=== PATIENT | female | born 1960 | race Caucasian/White ===

== ENCOUNTER 2025-08-27 15:50 | Observation (INO) ==
[2025-08-27] MEDS: ONDANSETRON INJ 2 MG/ML 2 ML VIAL IV STA (16:33)
[2025-08-27] MEDS: MoRPHine SULFATE 4 MG/ML 1 ML CARP\\VIAL IV PRN (16:38)
[2025-08-27 17:04] LABS: Hematocrit (blood only) 39.8 % (37.0-47.0); Hemoglobin 13.1 g/dL (12.0-16.0); Immature Granulocytes # (auto) 0.06 K/uL (0.01-0.20); Immature Granulocytes % (auto) 0.4 %; Mean Corpuscular Hemoglobin 29.2 pg (25.0-34.0); Mean Corpuscular Volume 88.8 fL (80.0-100.0); Platelet Count 329 K/uL (130-400); RDW Standard Deviation 40.3 fL (36.4-46.3); Red Blood Count 4.48 M/uL (4.20-5.40); White Blood Count 15.55 K/ul (4.8-10.8)
[2025-08-27] MEDS: LIDOCAINE 1% LOCAL 20 ML VIAL INJ ONE (17:07)
--- NOTE | 2025-08-27 17:10 | Emergency Department Note ---
History of Present Illness General Chief complaint: Ankle Pain Stated complaint: TWISTED RT ANKLE RAKING LEAVES, ~2:15 PM Time Seen by Provider: 08/27/25 16:17 History of Present Illness Maximum Pain Intensity: 7 This is a 65-year-old female presenting to the emergency department for evaluation of right ankle injury. The patient was raking leaves around 2:15 PM, slipped on the curb, and fell. She injured the right ankle and was not able to ambulate. Patient had to crawl back into the home and reach out to her . The patient does not have a previous injury to this ankle or foot, but did have a meniscus repair on the right knee. Patient rates her discomfort a 7/10. She does not have any blood or bleeding around the ankle. No head, neck, chest, or arm pain. Last meal was around 11:30 AM today. She has not had anything for pain control. Home Medications Medication Instructions Recorded Confirmed Type aspirin 81 mg tablet,delayed 81 mg PO DAILY 12/12/22 08/27/25 History release (Adult Aspirin Regimen) celecoxib 100 mg capsule (Celebrex) See Rx Instructions .Route 02/25/25 08/27/25 Rx .COMPLEX #30 caps triamterene 37.5 1 tab PO DAILY #90 tabs 04/22/25 08/27/25 Rx mg-hydrochlorothiazide 25 mg tablet metformin 500 mg tablet,extended 500 mg PO DAILY #30 tabs 07/01/25 08/27/25 Rx release 24 hr Allergies Allergy/AdvReac Type Severity Reaction Status Date / Time No Known Allergies Allergy Verified 08/27/25 16:33 Past Med/Surg History Problem List (Updated 08/27/25 @ 21:05 by Johnnie العلي PA-C) Displaced trimalleolar fracture of right ankle (Acute) Prediabetes (Chronic) Osteoarthritis of right knee (Chronic) Hyperlipidemia (Chronic) Hypertension (Chronic) Medical History Abnormal computed tomography angiography of head CTA [facility] 2021 = fusiform dilation of distal cervical segment right ICA and mild luminal irregularities V3 segments of both vertebral arteries - [facility] neurosurgery recommends low dose daily aspirin History of melanoma (2022) [place] 0.2 mm History of skull fracture (2021) History of basal cell carcinoma x2 (neck, left shoulder) Surgical History History of arthroscopy H/O oral surgery H/O knee surgery Family History Aunt Breast cancer Grandfather (Paternal) Colorectal cancer Grandmother (Paternal) Colorectal cancer Denies family history of Ovarian cancer Prostate cancer Myocardial infarction Social History Smoking Status: Never smoker Second Hand Exposure: No; Do You Dip or Chew Tobacco: No; Hx Alcohol Use: No Hx Substance Use: No Preferred Language: Tajik Visual Impairment: No Limitations Hearing Ability: Normal marital status: Current Living Situation: Spouse current occupational status: unemployed Feels Safe at Home: Yes Childhood Exposure to Second-Hand Smoke: Yes Diet: regular caffeine: Yes Dental Care, Regularly: No Physical Activity Frequency: Does not Exercise Seatbelt Use: always Sunscreen Use: Yes Assistive Devices: Glasses Review of Systems A total of 10 systems reviewed and were otherwise negative Physical Exam Vital Signs Vital Signs - 24 hr 08/27/25 16:04 08/27/25 19:51 08/27/25 20:48 Temperature 36.4 C L Temperature Source Temporal Artery Scan Pulse Rate 77 76 Pulse Rate [Finger] 72 Pulse Rhythm [Finger] Regular Respiratory Rate 19 18 18 Respiratory Effort / Characteristics Non-Labored Spontaneous Non-Labored Spontaneous Respiratory Depth Normal Normal Respiratory Pattern Regular Regular Blood Pressure 166/80 H Blood Pressure [Right Arm] Blood Pressure Mean 108 Blood Pressure Mean [Right Arm] Pulse Oximetry 97 98 97 Oxygen Delivery Method Room Air Room Air Room Air Sepsis Recent Fever Within 48 Hours No Sepsis New/Unexplained Change in Mental Status N/A Sepsis Action Taken by Nursing No Action Required 08/27/25 20:51 Temperature Temperature Source Pulse Rate Pulse Rate [Finger] 72 Pulse Rhythm [Finger] Respiratory Rate 17 Respiratory Effort / Characteristics Non-Labored Spontaneous Respiratory Depth Normal Respiratory Pattern Regular Blood Pressure Blood Pressure [Right Arm] 119/58 L Blood Pressure Mean Blood Pressure Mean [Right Arm] 78 Pulse Oximetry 98 Oxygen Delivery Method Room Air Sepsis Recent Fever Within 48 Hours Sepsis New/Unexplained Change in Mental Status Sepsis Action Taken by Nursing VITALS: Vitals are noted on the nurse's note and reviewed by myself. Vital signs stable. GENERAL: Well-developed, well-nourished, white female, who is pleasant and moderately uncomfortable. HEAD: Normocephalic atraumatic. NECK: Supple without nuchal rigidity. No lymphadenopathy. No thyromegaly. Cervical spine is nontender. HEART: Regular rate and rhythm without murmurs gallops or rubs. LUNGS: Clear to auscultation bilaterally without wheezes, rales or rhonchi. No retractions or accessory muscle use. ABDOMEN: Positive normal bowel sounds x 4. Soft, nontender, without masses or organomegaly. No guarding or rebound tenderness. MUSCULOSKELETAL: Edema noted with concern for deformity to the right ankle. No blood or bleeding. Neurovascular status appears intact. She is able to move the toes. No tenderness to the mid calf, proximal tib-fib, or knee. No other significant extremity injury identified. NEURO: Patient was alert and oriented to person place and time. CN II through XII grossly intact. No focal neurological deficits. GCS 15. Course Administered Medications Acetaminophen (Acetaminophen 500 Mg Tab) 1,000 mg PO Q8H LUIS Stop: 09/26/25 13:59 Last Admin: 08/27/25 19:27 Dose: Not Given Documented By: KLS Discontinued Medications Fentanyl Citrate (Fentanyl Citrate Pf 100 Mcg/2 Ml Vial) 100 mcg IV NOW STA Stop: 08/27/25 17:02 Last Admin: 08/27/25 17:06 Dose: 100 mcg Documented By: JESUS Lidocaine HCl (Lidocaine 1% Local 20 Ml Vial) 20 ml INJ NOW ONE Stop: 08/27/25 17:02 Last Admin: 08/27/25 17:07 Dose: 10 ml Documented By: JESUS Morphine Sulfate (Morphine Sulfate 4 Mg/Ml 1 Ml Carp\Vial) 4 mg IV Q30M PRN PRN Reason: Pain Stop: 09/10/25 16:23 Last Admin: 08/27/25 16:38 Dose: 4 mg Documented By: BS Ondansetron HCl (Ondansetron Inj 2 Mg/Ml 2 Ml Vial) 4 mg IV NOW STA Stop: 08/27/25 16:25 Last Admin: 08/27/25 16:33 Dose: 4 mg Documented By: BS Medical Decision Making Differential Diagnosis Differential diagnosis includes, but is not limited to: Sprain, strain, fracture, dislocation, subluxation, contusion, and others Laboratory Data 08/27/25 16:41 08/27/25 16:41 Lab Results 08/27/25 Range/Units 16:41 WBC 15.55 H (4.8-10.8) K/ul RBC 4.48 (4.20-5.40) M/uL Hgb 13.1 (12.0-16.0) g/dL Hct 39.8 (37.0-47.0) % MCV 88.8 (80.0-100.0) fL MCH 29.2 (25.0-34.0) pg MCHC 32.9 (32.0-36.0) g/dL RDW Std Deviation 40.3 (36.4-46.3) fL RDW Coeff of Sam 12.5 (11.5-14.5) % Plt Count 329 (130-400) K/uL MPV 9.9 (9.4-12.4) fL Immature Gran % (Auto) 0.4 % Neut % (Auto) 84.3 % Lymph % (Auto) 9.8 % [place] % (Auto) 4.4 % Eos % (Auto) 0.6 % Baso % (Auto) 0.5 % Neut # (Auto) 13.12 H (1.40-6.50) K/uL Lymph # (Auto) 1.52 (1.20-3.40) K/uL [place] # (Auto) 0.68 H (0.11-0.59) K/uL Eos # (Auto) 0.10 (0.00-0.50) K/uL Baso # (Auto) 0.07 (0.00-0.20) K/uL Immature Gran # (Auto) 0.06 (0.01-0.20) K/uL Sodium 137 (136-145) mmol/L Potassium 4.0 (3.5-5.1) mmol/L Chloride 100 (98-107) mmol/L Carbon Dioxide 27 (21-32) mmol/L Anion Gap 10 (3-11) BUN 20 (6-23) mg/dl Creatinine 1.27 H (0.6-1.2) mg/dl Est Cr Clr Drug Dosing Not Reportable eGFR 47.52 BUN/Creatinine Ratio 15.7 (10-20) Glucose 185 H (70-99(Fasting)) mg/dl Calcium 9.5 (8.6-10.3) mg/dl Total Bilirubin 0.4 (0.2-1.0) mg/dl AST 18 (13-39) U/L ALT 12 (7-52) U/L Alkaline Phosphatase 85 (34-104) U/L Total Protein 8.0 (6.0-8.3) gm/dl Albumin 4.7 (3.4-5.0) gm/dl Globulin 3.3 (2.5-4.0) gm/dl Albumin/Globulin Ratio 1.4 (0.9-2) Imaging Data Radiologist's Impression: Ankle X-Ray 08/27/25 16:10 Clinical History: Injury 3 views of the right ankle are submitted for review. Findings: There is dislocation of the ankle joint. There is an acute comminuted fracture of the distal fibular shaft width displacement and angulation of fracture fragments. There is a fracture of the posterior malleolus with displacement of fracture fragments. There is an apparent displaced fracture of the medial malleolus also. There is a dorsal calcaneal spur. No significant arthritic changes are noted. No other osseous abnormality is identified. There are no radiopaque foreign bodies. Impression: 1. Acute fractures of the medial and posterior malleoli and of the distal fibular shaft 2. Dislocation of the ankle joint ACT 112: Positive. There are findings on this exam that require communication between the performing entity and the patient following Patient Test Result Information Act ([place] ACT 112) guidelines. Electronically signed by Dipak Doty 08-27-2025 5:58 PM Ankle X-Ray 08/27/25 17:43 INDICATION: Fracture COMPARISON: X-ray from earlier TECHNIQUE: Contiguous axial CT images were obtained through the right ankle. Sagittal and coronal reconstructions were obtained. 3-D surface rendering and separate workstation. Dose reduction according to patient size and/or automated exposure control techniques have been utilized for this exam. FINDINGS: CT AXIAL IMAGES: Comminuted fracture of the distal fibular shaft. Mild displacement of the fracture fragments. Fracture through the lateral aspect of the distal tibia. Mild displacement of the fracture fragments. Tiny chip fracture through the medial malleolus. Adjacentwell-corticated calcifications. Fracture through the posterior aspect of the distal tibia. Minimal displacement of the fracture fragments. Better anatomic alignment at the ankle mortise. Soft tissue swelling. Cast in place. 3-D SURFACE RENDERING: Confirms the above findings. IMPRESSION: Comminuted fracture of the distal fibular shaft. Posterior malleolar fracture of the tibia. Additional fracture through the lateral aspect of the distal tibia. Tiny chip fracture of the medial malleolus. Electronically signed by Francesca Pérez 08-27-2025 6:[address] 08/27/25 17:57 INDICATION: Post reduction COMPARISON: Earlier today FINDINGS: Redemonstration of fractures of the distal tibia and fibula. Better anatomic alignment of the ankle mortise. Cast in place. Electronically signed by Francesca Pérez 08-27-2025 6:58 PM Chest X-Ray 08/27/25 18:17 COMPARISON: 08/14/2022 FINDINGS: HEART: Normal in borderline enlarged LUNGS: No focal consolidation, pleural effusion, or vascular congestion. MEEDIASTINUM: Unremarkable. BONES: Intact. OTHER: Unremarkable. IMPRESSION: No acute disease. Electronically signed by Francesca Pérez 08-27-2025 7:47 PM [facility] Narrative Physical exam and history were performed. Nursing notes, EMR, and Medication List were personally reviewed. No social concerns were identified as barriers to patients care. History was provided by the Patient and who is at bedside. Patient appears to have injury to her right ankle as described above. This does not appear to be an open injury, however there is concern for some deformity. X-rays were performed and independently reviewed by myself and radiology showing an obvious trimalleolar fracture. IV access was established and labs were obtained. Patient was given IV morphine and IV Zofran. Escalation of care was considered, and case was discussed with the on-call orthopedic team, who did evaluate the patient at bedside. Orthopedic team did perform reduction with splinting after patient was given a small amount of IV fentanyl. Please see their dictation for specifics regarding this procedure. Ultimately the patient does not appear well for discharge. She is unable to ambulate. It seems that her injury will likely be surgical at some point. Please see the admission team dictation for further patient course, plan, and disposition. The chart was completed utilizing [employer] Voice Recognition Software. Grammatical errors, random word insertions, pronoun errors, and incomplete sentences are an occasional consequence of this system due to software limitations, ambient noise, and hardware issues. Any formal questions or concerns about the content, text, or information contained within the body of this dictation should be directly addressed to the provider for clarification. Impression & Plan Displaced trimalleolar fracture of right ankle Discharge Plan Visit Data Chief Complaint: Ankle Pain Stated Complaint: TWISTED RT ANKLE RAKING LEAVES, ~2:15 PM ED Provider: [facility] Midlevel Provider: Johnnie العلي Discharge Problem: Displaced trimalleolar fracture of right ankle Patient Disposition: Being Evaluated by Surgeon Condition: Good Forms Stand Alone Forms: [facility] [employer] Prescriptions Prescriptions: No Action celecoxib [Celebrex] 100 mg capsule See Rx Instructions .ROUTE .COMPLEX Qty: 30 1RF Rx Instructions: 1-2 tabs daily as needed for arthritis pain; triamterene-hydrochlorothiazid 37.5-25 mg tablet 1 tab PO DAILY Qty: 90 3RF aspirin [Adult Aspirin Regimen] 81 mg tablet,delayed release (DR/EC) 81 mg PO DAILY metformin 500 mg tablet extended release 24 hr 500 mg PO DAILY Qty: 30 2RF Referrals Referrals: Jesica Moran MD [Primary Care Provider] -
[2025-08-27 17:11] LABS: Alanine Aminotransferase 12 U/L (7-52); Albumin Globulin Ratio 1.4 (0.9-2); Albumin Level 4.7 gm/dl (3.4-5.0); Alkaline Phosphatase 85 U/L (34-104); Anion Gap 10 (3-11); Bilirubin,Total 0.4 mg/dl (0.2-1.0); Blood Urea Nitrogen 20 mg/dl (6-23); Calcium 9.5 mg/dl (8.6-10.3); Carbon Dioxide 27 mmol/L (21-32); Chloride 100 mmol/L (98-107); Globulin 3.3 gm/dl (2.5-4.0); Glucose 185 mg/dl (70-99(Fasting)); Potassium 4.0 mmol/L (3.5-5.1); Sodium 137 mmol/L (136-145); Total Protein 8.0 gm/dl (6.0-8.3)
--- NOTE | 2025-08-27 17:59 | XRay Report ---
Clinical History: Injury 3 views of the right ankle are submitted for review. Findings: There is dislocation of the ankle joint. There is an acute comminuted fracture of the distal fibular shaft width displacement and angulation of fracture fragments. There is a fracture of the posterior malleolus with displacement of fracture fragments. There is an apparent displaced fracture of the medial malleolus also. There is a dorsal calcaneal spur. No significant arthritic changes are noted. No other osseous abnormality is identified. There are no radiopaque foreign bodies. Impression: 1. Acute fractures of the medial and posterior malleoli and of the distal fibular shaft 2. Dislocation of the ankle joint ACT 112: Positive. There are findings on this exam that require communication between the performing entity and the patient following Patient Test Result Information Act ([place] ACT 112) guidelines. Electronically signed by Dipak Doty 08-27-2025 5:58 PM
[2025-08-27] MEDS ORDERED: diphenhydrAMINE 50 MG/ML VIAL IV PRN (18:07)
[2025-08-27] MEDS ORDERED: ONDANSETRON INJ 2 MG/ML 2 ML VIAL IV PRN (18:16)
[2025-08-27] MEDS ORDERED: MoRPHine SULFATE 4 MG/ML 1 ML CARP\\VIAL IV PRN (18:19)
[2025-08-27] MEDS ORDERED: MoRPHine SULFATE 2 MG/ML CARP IV PRN (18:19)
--- NOTE | 2025-08-27 18:20 | History & Physical Report ---
Date of Service August 27, 2025 Assessment & Plan (1) Displaced trimalleolar fracture of right ankle: Plan: 1. Impression: Closed right trimalleolar ankle fracture with dislocation. Postreduction. Multimodal pain control with Tylenol, oxycodone, as needed IV morphine for severe breakthrough pain nonresponsive to oral medications. Intra-articular ankle block was performed with 1% plain lidocaine. Closed reduction was performed, patient was placed into a short leg splint with stirrup. Please see procedure note for full details of the above intra-articular block with closed reduction and splinting Nonweightbearing right lower extremity Ice and elevate right lower extremity Recommend patient use a standard walker for nonweightbearing ambulation Splint care reviewed with the patient including keeping the splint clean, dry, and intact. Not placing any foreign objects down the cast for itching or other purposes. Signs and symptoms of compartment syndrome were discussed with the patient, instructions to alert nursing staff or return to the emergency department immediately if she is experiencing any of the signs or symptoms of compartment syndrome. Condition: Orthopedically stable, however patient will benefit from admission to observation for pain control, therapy evaluations. - Will hold home Celebrex - Will obtain EKG, chest x-ray, vitamin D level, PT/INR, PTT as part of preoperative workup for surgery which will occur likely within the next 1 to 2 weeks. - Carb controlled diet - Activity: Up with staff as tolerated - Vital signs per protocol - DVT prophylaxis with aspirin 81 mg daily, SCD on unaffected limb 2. Prediabetes - Pharmacy consulted for glycemic control protocol - Continue metformin - Blood sugars BS AC, at bedtime 3. HTN, HLD - Continue home medications History of Present Illness Primary Care Provider: Jesica Moran MD This patient is a 65-year-old female history of pre diabetes, hypertension, hyperlipidemia, osteoarthritis who presented to the emergency department today after a mechanical fall. She was raking leaves in her yard. She stepped on a curb suffering a twisting injury to her right ankle. She did fall. She denies striking her head or loss of consciousness. She had immediate onset of pain about her ankle and deformity of the ankle. She came to the ER for evaluation. She was diagnosed with a right trimalleolar ankle fracture dislocation. This was a closed injury. The orthopedic service was asked to evaluate the patient. The time I saw the patient she complains of pain about her right ankle. She denies any numbness or tingling about her right ankle or foot. She denies any history of injury to the ankle in the past. She did have a right knee arthros copy in the past with partial meniscectomy. She has had no other surgeries on the right lower extremity. She states that the pain in her ankle is worse with any movement and is better with rest and immobilization. She denies any pain about her right knee, hip, left lower extremity, or bilateral upper extremities. She denies any dizziness, shortness of breath, chest pain, abdominal pain. Her most recent A1c was 6.8. She recently started on metformin p.o. Past medical history: HTN, HLD, prediabetes, osteoarthritis Past surgical history: Right knee arthroscopy with partial meniscectomy Social history: Denies tobacco use, denies alcohol use, denies illicit drug use. Lives at home with . Is an independent ambulator at baseline. Allergies: NKDA Medications: Denies blood thinners Allergies Allergy/AdvReac Type Severity Reaction Status Date / Time No Known Allergies Allergy Verified 08/27/25 16:33 Home Medications Medication Instructions Recorded Confirmed Type aspirin 81 mg tablet,delayed 81 mg PO DAILY 12/12/22 08/27/25 History release (Adult Aspirin Regimen) celecoxib 100 mg capsule (Celebrex) See Rx Instructions .Route 02/25/25 08/27/25 Rx .COMPLEX #30 caps triamterene 37.5 1 tab PO DAILY #90 tabs 04/22/25 08/27/25 Rx mg-hydrochlorothiazide 25 mg tablet metformin 500 mg tablet,extended 500 mg PO DAILY #30 tabs 07/01/25 08/27/25 Rx release 24 hr Past Med/Surg History Problem List (Updated 08/27/25 @ 18:29 by Jamar Beard DO) Displaced trimalleolar fracture of right ankle Prediabetes (Chronic) Osteoarthritis of right knee (Chronic) Hyperlipidemia (Chronic) Hypertension (Chronic) Medical History Abnormal computed tomography angiography of head [facility] 2021 = fusiform dilation of distal cervical segment right ICA and mild luminal irregularities V3 segments of both vertebral arteries - [facility] neurosurgery recommends low dose daily aspirin History of melanoma (2022) [place] 0.2 mm History of skull fracture (2021) History of basal cell carcinoma x2 (neck, left shoulder) Surgical History History of arthroscopy H/O oral surgery H/O knee surgery Family History Aunt Breast cancer Grandfather (Paternal) Colorectal cancer Grandmother (Paternal) Colorectal cancer Denies family history of Ovarian cancer Prostate cancer Myocardial infarction Social History Smoking Status: Never smoker Second Hand Exposure: No; Do You Dip or Chew Tobacco: No; Hx Alcohol Use: No Hx Substance Use: No Preferred Language: Russian Visual Impairment: No Limitations Hearing Ability: Normal marital status: Current Living Situation: Spouse current occupational status: unemployed Feels Safe at Home: Yes Childhood Exposure to Second-Hand Smoke: Yes Diet: regular caffeine: Yes Dental Care, Regularly: No Physical Activity Frequency: Does not Exercise Seatbelt Use: always Sunscreen Use: Yes Assistive Devices: Glasses Physical Exam Constitutional: WD/WN, vitals as above Eyes: PERRL, conjunctivae normal, anicteric sclerae ENMT: Ears: no hearing impairment and no external ear abnormality Nose: no external nose abnormality Neck: normal visual inspection and trachea midline Respiratory: normal respiratory effort, lungs clear to auscultation Cardiovascular: RRR, no murmur, no edema Gastrointestinal (Abdomen): Inspection/Auscultation: abdomen normal to inspection and normal bowel sounds Percussion/Palpation: abdomen soft; abdomen nontender, no guarding, abdomen not rigid and no hepatosplenomegaly Musculoskeletal: Right lower extremity: -Skin about the right ankle is clean, dr y, intact. There is ecchymosis noted about the medial aspect of the ankle. There is no skin tenting. There is no wounds, lacerations, or abrasions. No evidence of open fracture. Moderate edema noted about the medial and lateral aspect of the ankle. Visible deformity with posterior lateral ankle dislocation. Patient is tender to palpation about the medial and lateral malleoli. She is nontender to palpation about the fifth metatarsal, midfoot, forefoot, or phalanges. She is nontender to palpation about the proximal fibula or tibia. She has no tenderness to palpation about the right knee or hip. Negative syndesmotic squeeze test Sensation intact to light touch L4-S1 dermatomes DP and PT pulses palpable. Capillary refill less than 2 seconds. EHL/FHL are motor intact. Unable to assess gastrocsoleus and tibialis anterior due to ankle fracture dislocation Lower leg compartments are soft and compressible. No pain out of proportion with passive motion of the toes. Secondary survey: A brief secondary survey of the bilateral upper extremities and left lower extremity demonstrated skin that is clean, dry, intact. There is no tenderness to palpation about the clavicles, major joints or long bones of the bilateral upper extremities and left lower extremity. There is no pain with active motion of the bilateral upper extremities or left lower extremity. Skin: no rashes, warm and dry Neurologic: moves all extremities and awake Speech / Cognition: normal speech Psychiatric: A+Ox3, euthymic affect Results & Data Results & Data Vital Signs (Past 12 Hours) Vital Signs Temp Pulse Resp BP Pulse Ox O2 Del Method 08/27/25 16:04 36.4 C L 77 19 166/80 H 97 Room Air Laboratory Results 08/27/25 16:41 WBC 15.55 H RBC 4.48 Hgb 13.1 Hct 39.8 MCV 88.8 MCH 29.2 MCHC 32.9 RDW Std Deviation 40.3 RDW Coeff of Sam 12.5 Plt Count 329 MPV 9.9 Immature Gran % (Auto) 0.4 Neut % (Auto) 84.3 Lymph % (Auto) 9.8 [place] % (Auto) 4.4 Eos % (Auto) 0.6 Baso % (Auto) 0.5 Neut # (Auto) 13.12 H Lymph # (Auto) 1.52 [place] # (Auto) 0.68 H Eos # (Auto) 0.10 Baso # (Auto) 0.07 Immature Gran # (Auto) 0.06 Sodium 137 Potassium 4.0 Chloride 100 Carbon Dioxide 27 Anion Gap 10 BUN 20 Creatinine 1.27 H Est Cr Clr Drug Dosing Not Reportable eGFR 47.52 BUN/Creatinine Ratio 15.7 Glucose 185 H Calcium 9.5 Total Bilirubin 0.4 AST 18 ALT 12 Alkaline Phosphatase 85 Total Protein 8.0 Albumin 4.7 Globulin 3.3 Albumin/Globulin Ratio 1.4 Diagnostic Findings Ankle X-Ray 08/27/25 16:10 Clinical History: Injury 3 views of the right ankle are submitted for review. Findings: There is dislocation of the ankle joint. There is an acute comminuted fracture of the distal fibular shaft width displacement and angulation of fracture fragments. There is a fracture of the posterior malleolus with displacement of fracture fragments. There is an apparent displaced fracture of the medial malleolus also. There is a dorsal calcaneal spur. No significant arthritic changes are noted. No other osseous abnormality is identified. There are no radiopaque foreign bodies. Impression: 1. Acute fractures of the medial and posterior malleoli and of the distal fibular shaft 2. Dislocation of the ankle joint ACT 112: Positive. There are findings on this exam that require communication between the performing entity and the patient following Patient Test Result Information Act ([place] ACT 112) guidelines. Electronically signed by Dipak Doty 08-27-2025 5:58 PM I personally reviewed and interpreted three-view x-rays of the right ankle dated today 08/27/2025. They show a right ankle trimalleolar fracture dislocation. There is a comminuted fracture of the distal fibula which has apex anterior an gulation, shortening, and lateral displacement. There is a medial malleolus fracture which is displaced laterally, and a large posterior malleolus fragment with posterior displacement as well. Foot dislocated posterior lateral relative to the tibia. Postreduction three-view ankle x-rays also obtained today 08/27/2025 independently reviewed and interpreted by myself demonstrate a reduced trimal leolar ankle fracture dislocation. Comminuted distal fibula fracture above the level of the ankle syndesmosis. Comminuted medial malleolus fracture is also seen. Posterior malleolus fracture which is mildly displaced is also seen. Code Status & VTE Plan VTE Prophylaxis Plan VTE Prophylaxis will be ordered: Yes (1) Displaced trimalleolar fracture of right ankle Encounter type: initial encounter Fracture type: closed Qualified Code(s): S82.851A - Displaced trimalleolar fracture of right lower leg, initial encounter for closed fracture
--- NOTE | 2025-08-27 18:51 | Procedure Note ---
Procedure Note Date of Service August 27, 2025 Note Procedure: Right ankle intra-articular block with closed reduction and splinting I was assisted by Lola Owens PA-C. I discussed with the patient plan procedure of a right ankle intra-articular block with closed reduction and splinting. We discussed need for intra-articular block for pain control. We discussed plan for splinting. We discussed that she will need surgical intervention for this injury. Verbal consent was obtained from the patient, her was present, Lola Owens was present as well. Prior to the procedure a timeout was performed in which we identified the patient by her name, date of , and the right ankle as the intended site of the procedure. All were in agreement with this including the patient. Patient was given fentanyl per the emergency department provider. The anterior medial skin of the ankle was cleansed with alcohol swab followed by Betadine. Then using a 22-gauge needle staying medial to the tibialis anterior tendon and intra-articular block was performed with 20 cc 1% plain lidocaine. Bleeding from the injection site was controlled with direct pressure. Once patient had adequate pain control a closed reduction was performed of the right ankle using traction, posterior to anterior pressure, and internal rotation of the ankle. Palpable clunk was appreciated with reduction. Patient had 2+ DP pulse following reduction. A well-padded, well molded short leg plaster splint with stirrups was placed with a 3 point mold as well as a posterior to anterior mold to hold reduction. The plaster was allowed to harden. Following reduction and splinting sensation was intact to light touch in the exposed toes and in the first webspace. Patient was able to wiggle all toes including the great toe without any difficulty. DP pulse was palpable. Capillary fill was less than 2 seconds. Patient denied any numbness or tingling. Postreduction x-rays were obtained 3 views of the right ankle and reviewed which showed reduction of previous right ankle trimalleolar fracture dislocation. CT scan was obtained post reduction which shows comminuted distal fibula fracture, a comminuted medial malleolus fracture, a Tillaux fragment, a comminuted posterior malleolus fracture. Ankle is reduced on CT scan. Coding
--- NOTE | 2025-08-27 19:00 | XRay Report ---
INDICATION: Fracture COMPARISON: X-ray from earlier TECHNIQUE: Contiguous axial CT images were obtained through the right ankle. Sagittal and coronal reconstructions were obtained. 3-D surface rendering and separate workstation. Dose reduction according to patient size and/or automated exposure control techniques have been utilized for this exam. FINDINGS: CT AXIAL IMAGES: Comminuted fracture of the distal fibular shaft. Mild displacement of the fracture fragments. Fracture through the lateral aspect of the distal tibia. Mild displacement of the fracture fragments. Tiny chip fracture through the medial malleolus. Adjacentwell-corticated calcifications. Fracture through the posterior aspect of the distal tibia. Minimal displacement of the fracture fragments. Better anatomic alignment at the ankle mortise. Soft tissue swelling. Cast in place. 3-D SURFACE RENDERING: Confirms the above findings. IMPRESSION: Comminuted fracture of the distal fibular shaft. Posterior malleolar fracture of the tibia. Additional fracture through the lateral aspect of the distal tibia. Tiny chip fracture of the medial malleolus. Electronically signed by Francesca Pérez 08-27-2025 6:58 PM
--- NOTE | 2025-08-27 19:00 | CT Scan Report ---
INDICATION: Post reduction COMPARISON: Earlier today FINDINGS: Redemonstration of fractures of the distal tibia and fibula. Better anatomic alignment of the ankle mortise. Cast in place. Electronically signed by Francesca Pérez 08-27-2025 6:58 PM
[2025-08-27] MEDS: ACETAMINOPHEN 500 MG TAB PO SCH (19:27)
--- NOTE | 2025-08-27 19:47 | XRay Report ---
COMPARISON: 08/14/2022 FINDINGS: HEART: Normal in borderline enlarged LUNGS: No focal consolidation, pleural effusion, or vascular congestion. MEEDIASTINUM: Unremarkable. BONES: Intact. OTHER: Unremarkable. IMPRESSION: No acute disease. Electronically signed by Francesca Pérez 08-27-2025 7:47 PM
[2025-08-27] MEDS: DOCUSATE SODIUM 100 MG CAP PO SCH (21:46)
[2025-08-28 01:08] VITALS: RESP 16
[2025-08-28 07:07] LABS: INR 1.0 (0.9-1.1); Partial Thromboplastin Time 25 Seconds (21-31); Prothrombin Time 10.5 Seconds (9.0-12.0)
[2025-08-28 07:15] VITALS: BP 144/78; PULSE 67; TEMP 97.7; O2SAT 96
[2025-08-28 07:42] LABS: Hemoglobin A1C 6.5 % (4.5-5.6)
[2025-08-28] MEDS: TRIAMTERENE/HCTZ 37.5/25MG TAB PO SCH (09:32)
[2025-08-28] MEDS: ASPIRIN 81 MG ECTAB PO SCH (09:32)
--- NOTE | 2025-08-28 10:20 | Orthopedic Progress Note ---
<Statement entered by Jamar Beard, DO - 08/28/25 12:58> I personally saw and evaluated the patient today. She is resting comfortably. Her pain is well-controlled with oral medications. She is not requiring any IV pain medications. She worked with physical therapy today. She tolerated this well. She was able to maintain nonweightbearing appropriately with use of a walker and a rolling knee scooter. She denies any numbness or tingling of the right lower extremity. Physical exam: General: Patient is awake, alert, no acute distress. She is afebrile and vital signs are stable. Right lower extremity: Splint is clean, dry, and intact. This was left in place during my exam. There is ice over the anterior aspect of the splint. Sensation is intact to light to uch over all of the toes. She is able to actively flex and extend all of her toes including her great toe. She can perform an active straight leg raise. DP pulse is palpable. Capillary fill is less than 3 seconds all of the exposed toes. Assessment and plan: Impression: Dislocated trimalleolar fracture of right ankle status post closed reduction and splinting I have spoken with Dr. Nestor Mandujano from [facility] regarding this patient. He has agreed to see the patient as an outpatient, and will take over her care for surgical intervention. He would like to see her next Sunday in his office. Patient will need to contact the office to set up an appointment. Pain control with Tylenol and as needed oxycodone for severe breakthrough pain. Prescription sent to outpatient pharmacy today. Nonweightbearing right lower extremity with assistance of a walker and knee scooter. Prescriptions were written for both of these. Continue with ice and elevation of the right ankle for pain and swelling Continue home aspirin 81 mg once daily for DVT prophylaxis Patient is orthopedically stable for discharge. She will follow-up with Dr. Nestor Mandujano as an outpatient next Sunday. She may follow-up with me on an as needed basis if necessary. We did review signs and symptoms of compartment syndrome, asked her to return to the emergency department if she experiences any of these. She verbalized understanding. Date of Service August 28, 2025 Assessment & Plan (1) Displaced trimalleolar fracture of right ankle: Plan: A [place] text message was sent to Dr. Mandujano. He states that he will most likely see the patient in his office next Sunday. He advised her to contact the clinic either later today or sometime Sunday to set up that appointment. Pain control with p.o. medication Nonweightbearing on right lower extremity with the assistance of a walker or knee scooter (prescriptions were wrote for both of these.) Ice with easy wrap Patient is currently on aspirin which we will use for DVT prophylaxis Orthopedically the patient is stable for discharge and will follow-up with Dr. Mandujano as an outpatient as scheduled. Admission and Anticipated Discharge Date Admission Date: August 27, 2025 Subjective This 65-year-old female seen in follow-up for a right ankle trimalleolar fracture that was reduced by Dr. Beard in the emergency department yesterday and placed into a posterior use splint. Dr. Beard has discussed the case with Dr. Mandujano at [facility] who will assume her care upon discharge. Patient states that splint is fairly comfortable but heavy. She states she is able to lift her leg off of the bed. She is able to move her toes as well. She understands that she is to be nonweightbearing on the right lower extremity. Currently she denies chest pain, shortness of breath, fever, chills, sweats, nausea, vomiting, diarrhea, difficulty voiding or numbness or tingling in the right lower extremity. Review of Systems Review of Systems: All systems reviewed & are unremarkable except as noted in Subjective Physical Exam Physical Exam: Right lower extremity: Splint is clean dry and intact left in place. Patient is applying ice over the anterior aspect. She is able to detect light sensation to touch over the pads of all digits. She is able to move her digits. She is able to easily perform an active straight leg raise test and flex her knee beyond 90 degrees. Her quad strength is 4 out of 5. She is neurovascularly intact. Results & Data Vital Signs (Past 12 Hours) Vital Signs Temp Pulse Resp BP Pulse Ox O2 Del Method 08/28/25 07:14 36.5 C 67 16 144/78 H 96 Room Air Diagnostic Findings Laboratory Results WBC 15.55 K/ul (4.8-10.8) H 08/27/25 16:41 RBC 4.48 M/uL (4.20-5.40) 08/27/25 16:41 Hgb 13.1 g/dL (12.0-16.0) 08/27/25 16:41 Hct 39.8 % (37.0-47.0) 08/27/25 16:41 MCV 88.8 fL (80.0-100.0) 08/27/25 16:41 MCH 29.2 pg (25.0-34.0) 08/27/25 16:41 MCHC 32.9 g/dL (32.0-36.0) 08/27/25 16:41 RDW Std Deviation 40.3 fL (36.4-46.3) 08/27/25 16:41 RDW Coeff of Sam 12.5 % (11.5-14.5) 08/27/25 16:41 Plt Count 329 K/uL (130-400) 08/27/25 16:41 MPV 9.9 fL (9.4-12.4) 08/27/25 16:41 Immature Gran % (Auto) 0.4 % 08/27/25 16:41 Neut % (Auto) 84.3 % 08/27/25 16:41 Lymph % (Auto) 9.8 % 08/27/25 16:41 [place] % (Auto) 4.4 % 08/27/25 16:41 Eos % (Auto) 0.6 % 08/27/25 16:41 Baso % (Auto) 0.5 % 08/27/25 16:41 Neut # (Auto) 13.12 K/uL (1.40-6.50) H 08/27/25 16:41 Lymph # (Auto) 1.52 K/uL (1.20-3.40) 08/27/25 16:41 [place] # (Auto) 0.68 K/uL (0.11-0.59) H 08/27/25 16:41 Eos # (Auto) 0.10 K/uL (0.00-0.50) 08/27/25 16:41 Baso # (Auto) 0.07 K/uL (0.00-0.20) 08/27/25 16:41 Immature Gran # (Auto) 0.06 K/uL (0.01-0.20) 08/27/25 16:41 PT 10.5 Seconds (9.0-12.0) 08/28/25 05:30 INR 1.0 (0.9-1.1) 08/28/25 05:30 APTT 25 Seconds (21-31) 08/28/25 05:30 PTT Ratio 0.9 08/28/25 05:30 Sodium 137 mmol/L (136-145) 08/27/25 16:41 Potassium 4.0 mmol/L (3.5-5.1) 08/27/25 16:41 Chloride 100 mmol/L (98-107) 08/27/25 16:41 Carbon Dioxide 27 mmol/L (21-32) 08/27/25 16:41 Anion Gap 10 (3-11) 08/27/25 16:41 BUN 20 mg/dl (6-23) 08/27/25 16:41 Creatinine 1.27 mg/dl (0.6-1.2) H 08/27/25 16:41 Est Cr Clr Drug Dosing Not Reportable 08/27/25 16:41 eGFR 47.52 08/27/25 16:41 BUN/Creatinine Ratio 15.7 (10-20) 08/27/25 16:41 Glucose 185 mg/dl (70-99(Fasting)) H 08/27/25 16:41 POC Glucose 123 mg/dl (70-99) H 08/28/25 07:59 Estimat Average Glucose 140 mg/dl 08/28/25 05:30 Hemoglobin A1c 6.5 % (4.5-5.6) H 08/28/25 05:30 Calcium 9.5 mg/dl (8.6-10.3) 08/27/25 16:41 Total Bilirubin 0.4 mg/dl (0.2-1.0) 08/27/25 16:41 AST 18 U/L (13-39) 08/27/25 16:41 ALT 12 U/L (7-52) 08/27/25 16:41 Alkaline Phosphatase 85 U/L (34-104) 08/27/25 16:41 Total Protein 8.0 gm/dl (6.0-8.3) 08/27/25 16:41 Albumin 4.7 gm/dl (3.4-5.0) 08/27/25 16:41 Globulin 3.3 gm/dl (2.5-4.0) 08/27/25 16:41 Albumin/Globulin Ratio 1.4 (0.9-2) 08/27/25 16:41 25-OH Vitamin D Total 23.5 ng/ml (30-100) L 08/28/25 05:30 Impressions Ankle X-Ray 08/27/25 17:43 INDICATION: Fracture COMPARISON: X-ray from earlier TECHNIQUE: Contiguous axial CT images were obtained through the right ankle. Sagittal and coronal reconstructions were obtained. 3-D surface rendering and separate workstation. Dose reduction according to patient size and/or automated exposure control techniques have been utilized for this exam. FINDINGS: CT AXIAL IMAGES: Comminuted fracture of the distal fibular shaft. Mild displacement of the fracture fragments. Fracture through the lateral aspect of the distal tibia. Mild displacement of the fracture fragments. Tiny chip fracture through the medial malleolus. Adjacentwell-corticated calcifications. Fracture through the posterior aspect of the distal tibia. Minimal displacement of the fracture fragments. Better anatomic alignment at the ankle mortise. Soft tissue swelling. Cast in place. 3-D SURFACE RENDERING: Confirms the above findings. IMPRESSION: Comminuted fracture of the distal fibular shaft. Posterior malleolar fracture of the tibia. Additional fracture through the lateral aspect of the distal tibia. Tiny chip fracture of the medial malleolus. Electronically signed by Francesca Pérez 08-27-2025 6:[address] 08/27/25 17:57 INDICATION: Post reduction COMPARISON: Earlier today FINDINGS: Redemonstration of fractures of the distal tibia and fibula. Better anatomic alignment of the ankle mortise. Cast in place. Electronically signed by Francesca Pérez 08-27-2025 6:58 PM Chest X-Ray 08/27/25 18:17 COMPARISON: 08/14/2022 FINDINGS: HEART: Normal in borderline enlarged LUNGS: No focal consolidation, pleural effusion, or vascular congestion. MEEDIASTINUM: Unremarkable. BONES: Intact. OTHER: Unremarkable. IMPRESSION: No acute disease. Electronically signed by Francesca Pérez 08-27-2025 7:47 PM
--- NOTE | 2025-08-28 12:17 | Discharge Summary ---
Date of Service August 28, 2025 Admission HPI Per Admitting Provider This patient is a 65-year-old female history of pre diabetes, hypertension, hyperlipidemia, osteoarthritis who presented to the emergency department today after a mechanical fall. She was raking leaves in her yard. She stepped on a curb suffering a twisting injury to her right ankle. She did fall. She denies striking her head or loss of consciousness. She had immediate onset of pain about her ankle and deformity of the ankle. She came to the ER for evaluation. She was diagnosed with a right trimalleolar ankle fracture dislocation. This was a closed injury. The orthopedic service was asked to evaluate the patient. The time I saw the patient she complains of pain about her right ankle. She denies any numbness or tingling about her right ankle or foot. She denies any history of injury to the ankle in the past. She did have a right knee arthroscopy in the past with partial meniscectomy. She has had no other surgeries on the right lower extremity. She states that the pain in her ankle is worse with any movement and is better with rest and immobilization. She denies any pain about her right knee, hip, left lower extremity, or bilateral upper extremities. She denies any dizziness, shortness of breath, chest pain, abdominal pain. Her most recent A1c was 6.8. She recently started on metformin p.o. Past medical history: HTN, HLD, prediabetes, osteoarthritis Past surgical history: Right knee arthroscopy with partial meniscectomy Social history: Denies tobacco use, denies alcohol use, denies illicit drug use. Lives at home with . Is an independent ambulator at baseline. Allergies: NKDA Medications: Denies blood thinners Admission Exam Per Admitting Provider Physical Exam Constitutional: WD/WN, vitals as above Eyes: PERRL, conjunctivae normal, anicteric sclerae ENMT: Ears: no hearing impairment and no external ear abnormality Nose: no external nose abnormality Neck: normal visual inspection and trachea midline Respiratory: normal respiratory effort, lungs clear to auscultation Cardiovascular: RRR, no murmur, no edema Gastrointestinal (Abdomen): Inspection/Auscultation: abdomen normal to inspection and normal bowel sounds Percussion/Palpation: abdomen soft; abdomen nontender, no guarding, abdomen not rigid and no hepatosplenomegaly Musculoskeletal: Right lower extremity: -Skin about the right ankle is clean, dr y, intact. There is ecchymosis noted about the medial aspect of the ankle. There is no skin tenting. There is no wounds, lacerations, or abrasions. No evidence of open fracture.Moderate edema noted about the medial and lateral aspect of the ankle. Visible deformity with posterior lateral ankle dislocation. Patient is tender to palpation about the medial and lateral malleoli. She is nontender to palpation about the fifth metatarsal, midfoot, forefoot, or phalanges. She is nontender to palpation about the proximal fibula or tibia. She has no tenderness to palpation about the right knee or hip. Negative syndesmotic squeeze test Sensation intact to light touch L4-S1 dermatomes DP and PT pulses palpable. Capillary refill less than 2 seconds. EHL/FHL are motor intact. Unable to assess gastrocsoleus and tibialis anterior due to ankle fracture dislocation Lower leg compartments are soft and compressible. No pain out of proportion with passive motion of the toes. Secondary survey: A brief secondary survey of the bilateral upper extremities and left lower extremity demonstrated skin that is clean, dry, intact. There is no tenderness to palpation about the clavicles, major joints or long bones of the bilateral upper extremities and left lower extremity. There is no pain with active motion of the bilateral upper extremities or left lower extremity. Skin: no rashes, warm and dry Neurologic: moves all extremities and awake Speech / Cognition: normal speech Psychiatric: A+Ox3, euthymic affect Principal Diagnosis Rt ankle trimalleolar fracture Discharge Exam General: Patient is awake, alert, no acute distress. She is afebrile and vital signs are stable. Right lower extremity: Splint is clean, dry, and intact. This was left in place during my exam. There is ice over the anterior aspect of the splint. Sensation is intact to light touch over all of the toes. She is able to actively flex and extend all of her toes including her great toe. She can perform an active straight leg raise. DP pulse is palpable. Capillary fill is less than 3 seconds all of the exposed toes. Discharge Data Allergies Allergy/AdvReac Type Severity Reaction Status Date / Time No Known Allergies Allergy Verified 08/27/25 16:33 Consultations 08/27/25 17:06 Consult Orthopedic Surgery Stat Procedures Performed Right ankle intra-articular block with closed reduction and splinting Ordered Studies 08/27/25 17:57 CT ankle RT wo con Stat Diabetes Follow up Follow up with PCP as scheduled Hospital Course (1) Displaced trimalleolar fracture of right ankle: The patient presented to the emergency department at [facility] after suffering a twisting injury with a fall which resulted in a right ankle trimalleolar ankle fracture dislocation. She was seen and evaluated in the emergency department and intra-articular ankle block was performed with a closed reduction and splint application to the right ankle. CT scan was obtained postreduction as well. There was concern the patient would have difficulty with pain control and maintaining nonweightbearing to the right lower extremity. She was admitted to observation for pain control and evaluation with therapy services. She was seen by therapy today, she was able to safely maintain nonweightbearing using a rolling knee scooter and a walker. Prescriptions were provided for these. Her pain was controlled with oral medications Tylenol, and oxycodone as needed for breakthrough severe pain. She tolerated these medications well. Her pain was well-controlled. She did not re quire any IV medications. She was felt to be stable for discharge to home after these evaluations were performed today. She will be discharged home. She will follow-up with Dr. Nestor Mandujano with [facility] next Sunday for surgical evaluation. She will be discharged home on aspirin 81 mg once daily for DVT prophylaxis. She will also take Tylenol p.o., and oxycodone p.o. as needed for breakthrough severe pain. She is encouraged to have regular ice and elevation to the right lower extremity to help with pain and swelling. She has been instructed on the signs and symptoms of compartment syndrome as well as return to ER precautions. She has been instructed for nonweightbearing to the right lower extremity Total Time Total Time Spent Total Time Spent (In Minutes): 25 mins Discharge Plan Discharge Items Patient Disposition: Home - Self-Care Reason For Visit: RIGHT TRIMALLEOLAR ANKLE FRACTURE, AMBULATORY DYSF Discharge Diagnosis: Right ankle trimalleolar fracture Condition on Discharge: Good Activity: Per Instructions section Bathing Comment: Keep splint on, clean, and dry at all times Weightbearing: Right non-weightbearing Weightbearing Comment: PORSHA CASH Non-emergency contact: Surgeon Call non-emergency contact if: you have any medication questions, your pain is not controlled, your pain is concerning for you, your temperature is above 101, your wound has increased redness and your wound has increased drainage Follow-up/Referrals: Jesica Moran MD [Primary Care Provider] - 09/02/25 11:00 am (appointment is with Jesusita Pride PA-C.) Jamar Beard DO [Surgeon] - (as needed) Nestor Mandujano DO [Surgeon] - (as scheduled; call for an appointment for early next week; he would like to see you Sunday in his office) Diet: Regular and Carb Consistent or DM2 Addtl Attending Provider Instructions: Discharge instructions for your right ankle fracture: ACTIVITY -You may NOT bear weight with your right leg under any circumstance. Use walker or knee scooter at all times when out of bed. -You should move (straighten and bend) your knee at least 10 times per day within your comfort to decrease swelling and prevent stiffness. -You may more your right hip within your comfort to decrease swelling and prevent stiffness. DRESSINGS & INCISIONS -Please keep the splint clean and dry; if you are going to shower/bathe, you must protect the splint. You may not soak in a bathtub, pool, bro, hot tub, or the ocean until cleared by your surgeon. -Do not remove any of the dressings or splint. PAIN & INFLAMMATION -Ice - Apply ice bags wrapped in a dry towel several times per day for 20 minutes for the first week and then as needed for pain relief and inflammation. -Elevation - Keep your leg elevated above your heart as much as possible for daily before and after your upcoming procedure. The more you keep it elevated the less swelling you will have and potentially the sooner you can have your procedure. PAIN MEDICATION: --You have been given a prescription for pain control; please take as directed. --If you think you will require a refill on your medication, you MUST do so during our regular weekday office hours. --Please allow 48 hours for your prescription to be refilled. --You may take Tylenol 1000mg every 8 hours. This works best when taken on a schedule. Do not take more than 3 grams or 3000mg in a 24 hour period! -Common side effects of the pain medication are: --NAUSEA: To decrease nausea, take these medications with food. --DROWSINESS: Do not drive a car or operate machinery. --CONSTIPATION: To decrease constipation, use a stool softener or over-the counter remedies (Mineral Oil, Milk of Magnesia, etc). Also avoid bananas, rice, apples, toast, and yogurtas these foods can make you constipated. Getting up and moving around also helps with constipation and waking up your intestinal tract. --You may also take an Anti-inflammatory medications (Aleve, Ibuprofen, Naproxen, etc.) to assist with swelling and pain unless otherwise instructed by your surgeon. BLOOD CLOT PREVENTION: -Take your Aspirin 81 mg once daily to thin your blood to prevent blood clots leading up to surgery. -Maintain an active lifestyle, it is advisable to take a walk once or twice a day in addition to being up and about your home for normal daily activities. - Frequent movement of your left ankle, movement of both knees will be helpful in circulating blood and preventing blood clots. EMERGENCIES -Please call the clinic or the orthopaedist on-call if: - Any issues with the splint, questions or concerns. --You develop a fever (>101.5.) or chills --You experience leg or calf pain, leg swelling, or difficulty breathing. FOLLOW-UP CARE - Follow up with Dr. Mandujano early next week as scheduled. You will need to call for this appointment if you have not done so already. - Follow up with Dr. Beard (seen in the ED) as needed. IF YOU HAVE ANY QUESTIONS OR CONCERNS, PLEASE CALL THE OFFICE Pending Studies at Discharge: No Stand-Alone Forms: My [facility] [place], Smoking Cessation Medications and DC Order Prescriptions: New oxycodone 5 mg Tablet 5 - 10 mg PO Q4H PRN (Reason: pain) Qty: 15 0RF Rx Instructions: 5mg for pain 1-5 10mg for pain 6-10 acetaminophen [Tylenol Extra Strength] 500 mg Tablet 1,000 mg PO Q8H Qty: 30 0RF docusate sodium 100 mg Capsule 100 mg PO BID 14 Days Qty: 28 0RF Rx Instructions: over the counter; while on pain medication Continued triamterene-hydrochlorothiazid 37.5-25 mg tablet 1 tab PO DAILY Qty: 90 3RF aspirin [Adult Aspirin Regimen] 81 mg tablet,delayed release (DR/EC) 81 mg PO DAILY metformin 500 mg tablet extended release 24 hr 500 mg PO DAILY Qty: 30 2RF Held celecoxib [Celebrex] 100 mg capsule See Rx Instructions .ROUTE .COMPLEX Qty: 30 1RF Hold Instructions: preop Rx Instructions: 1-2 tabs daily as needed for arthritis pain; Discharge Orders: Discharge Order (Routine); Ordered 08/28/25 Ordered By: Lola Trivedi/Other Patient Handouts: Understanding an Ankle Fracture Admission Data Admit Date/Time: 08/27/25 18:07 Attending Provider: Jamar Beard Admit Provider: Jamar Beard Primary Care Provider: Jesica Moran Other Providers: Jamar Beard Supervising Physician Co-Signing Physician Notes I have personally seen and evaluated the patient today. I have altered the discharge summary documentation where appropriate and spent a significant portion of time managing the patients care.
--- NOTE | 2025-08-28 20:22 | Electrocardiogram Report ---
Test Reason : Blood Pressure : */* mmHG Vent. Rate : 75 BPM Atrial Rate : 75 BPM P-R Int : 158 ms QRS Dur : 94 ms QT Int : 406 ms P-R-T Axes : 67 21 41 degrees QTcB Int : 453 ms Normal sinus rhythm Normal ECG When compared with ECG of 14-Aug-2022 02:09, T wave inversion no longer evident in Inferior leads T wave inversion no longer evident in Anterolateral leads Confirmed by Subhash Ling ([id number]) on 08/28/2025 8:21:42 PM Referred By: REFERRED SELF Confirmed By: Subhash Ling
== END 2025-08-28 13:35 | disposition home or self-care (01) ==
LOC: 3E 15:50 → ED 15:50 → 3E 21:26

== ENCOUNTER 2025-09-04 10:12 | Observation (INO) ==
--- NOTE | 2025-09-03 08:40 | Anesthesiology Consultation ---
Date of Service September 03, 2025 Assessment & Plan (1) Encounter for pre-operative examination: - Check BSG DOS - Infectious disease screening: Per assessment on 09/03/25- No known recent infectious disease contacts or current infectious disease symptoms. Chart Review Chart Review: Acceptable Risk for Surgery (pending evaluation DOS) and Patient NOT seen in Pre Admission Testing History Surgery Operation Date: 09/04/25 12:15 Proposed Procedures p Right Ankle Open Reduction Internal Fixation Pilon and Open Reduction Internal Fixation Fibula, Open Reduction Internal Fixation Syndesmosis - Nestor Mandujano DO Height/Weight Height: 5 ft 8 in Weight: 111.13 kg Allergies Allergy/AdvReac Type Severity Reaction Status Date / Time No Known Allergies Allergy Verified 09/03/25 07:31 Medications Home Medications Medication Instructions Recorded Confirmed Last Taken aspirin 81 mg tablet,delayed 81 mg PO QAM 12/12/22 09/03/25 Unknown release (Adult Aspirin Regimen) docusate sodium 100 mg capsule 100 mg PO BID 14 days #28 caps 08/28/25 09/03/25 Unknown oxycodone 5 mg tablet 5 - 10 mg (1 - 2 x 5 mg) PO Q4H 08/28/25 09/03/25 Unknown PRN pain #15 tabs acetaminophen 500 mg tablet 1,000 mg PO Q8H PRN Pain 09/03/25 09/03/25 Unknown (Tylenol Extra Strength) celecoxib 100 mg capsule (Celebrex) 100 - 200 mg PO UD PRN Pain 09/03/25 09/03/25 Unknown metformin 500 mg tablet,extended 500 mg PO QPM 09/03/25 09/03/25 Unknown release 24 hr triamterene 37.5 1 tab PO QAM 09/03/25 09/03/25 Unknown mg-hydrochlorothiazide 25 mg tablet Past Medical History Medical History Abnormal computed tomography angiography of head CTA [facility] 2021: fusiform dilation of distal cervical segment right ICA and mild luminal irregularities V3 segments of both vertebral arteries [facility] neurosurgery recommends low dose daily aspirin Displaced trimalleolar fracture of right ankle (08/27/25) Comminuted fracture of the distal fibular shaft and posterior malleolar fracture of the tibia from a fall when she twisted her ankle raking leaves. History of basal cell carcinoma x2 (neck, left shoulder) History of melanoma (2022) [place] 0.2 mm History of skull fracture (2021) 2/2 to fainting episode/fall due to low blood pressure HTN (hypertension) Hx of hyperlipidemia Obesity Osteoarthritis Prediabetes Past Family History Family History Aunt Breast cancer Grandfather (Paternal) Colorectal cancer Grandmother (Paternal) Colorectal cancer Denies family history of Ovarian cancer Prostate cancer Myocardial infarction Past Surgical History Surgical History H/O oral surgery many years ago History of arthroscopy right knee Hx of basal cell carcinoma excision neck, shoulder Hx of colonoscopy Hx of melanoma excision Social History Smoking Status: Never smoker Do You Dip or Chew Tobacco: No Hx Alcohol Use: No Hx Substance Use: No substance use type: does not use Lab Results Anesthesia Preop Results Results Anesthesia Widget: WBC 15.55 K/ul (4.8-10.8) H 08/27/25 Hgb 13.1 g/dL (12.0-16.0) 08/27/25 Hct 39.8 % (37.0-47.0) 08/27/25 Plt 329 K/uL (130-400) 08/27/25 Na 137 mmol/L (136-145) 08/27/25 K 4.0 mmol/L (3.5-5.1) 08/27/25 Cl 100 mmol/L (98-107) 08/27/25 CO2 27 mmol/L (21-32) 08/27/25 BUN 20 mg/dl (6-23) 08/27/25 Creat 1.27 mg/dl (0.6-1.2) H 08/27/25 Glucose Level 185 mg/dl (70-99(Fasting)) H 08/27/25 PT 10.5 Seconds (9.0-12.0) 08/28/25 PTT 25 Seconds (21-31) 08/28/25 INR 1.0 (0.9-1.1) 08/28/25 HA1c 6.5 % (4.5-5.6) H 08/28/25 Testing Electrocardiogram Date: 08/27/25 Findings: + NSR @ (75) Chest X-Ray Date: 08/27/25 Findings: + NAD Echocardiogram Date: 08/14/22 LVEF 60-64%. No LV wall motion abnormalities. Mild MR. Grade I DD.
[~2025-09-04 10:12] MED LIST: ROPIVACAINE 0.5% 5 MG/ML 30 ML VIAL ONE
--- NOTE | 2025-09-04 10:25 | History & Physical Bridge Note ---
Date of Service September 04, 2025 History & Physical Bridge Note I have examined the patient, reviewed the History & Physical and in the interval since the performance of the History & Physical I have noted the following changes of clinical significance: Kimber is a 65-year-old female who originally fell on 08/27/2025 and sustained a right ankle fracture. She was seen in the emergency department and reduced by the on-call orthopedist (Dr. Beard). She had a CT scan reviewed and she was sent to me in follow-up for definitive management. She denies significant past medical history with the exception of prediabetes. She denies any additional areas of pain besides her right ankle. Her x-rays and CT scan demonstrate a complex ankle fracture with a comminuted posterior malleolus with intra- articular bone fragments as well as a comminuted Cummings C fibula fracture and an anterior Chaput fragment off the distal tibia. I had a long discussion with the patient regarding the nature of this injury. We discussed in great detail the pathoanatomy, pathophysiology, treatment options. Given the significant instability of her ankle, my recommendation is for open reduction internal fixation of the posterior malleolus, fibula, syndesmosis, and Chaput fragment. I discussed with her the alternative surgical management which would be for nonoperative care. I believe nonoperative management carries with it a very high risk of posttraumatic osteoarthrosis as well as nonunion and malunion leading to an unstable ankle in the future. We discussed the risks of surgery which include but are not limited to loss of life/limb, DVT/PE, incomplete relief of pain, need for additional surgery, iatrogenic injury to bone/nerve/tendon/vessel, nonunion, malunion, hardware complication, hardware failure, hardware irritation, wound healing complications, infection. Given the fact that the patient will have multiple incisions about her ankle for fixation, the patient's risk of wound healing complications is higher in the general public as well. After thorough discussion the risk, benefits and alternatives t o surgical management, the patient was interested in pursuing operative care. At the time of her original evaluation, the patient's skin demonstrated positive wrinkle sign and on evaluation today, her soft tissue swelling is amenable for definitive fixation. We will plan for a posterior medial approach to the posterior malleolus in order to reduce the incarcerated fragments within the posterior malleolus, a direct lateral approach to the distal fibula for fixation of the distal fibula, syndesmosis and the Nirav fragment. Surgical plan: Open reduction internal fixation right distal fibula, posterior malleolus, Chaput fragment, syndesmosis.
[2025-09-04] MEDS: LR 15ML/HR IV SCH (10:43)
[2025-09-04] MEDS ORDERED: MIDAZOLAM HCL 1 MG/ML 2ML VIAL ONE (12:07)
[2025-09-04] MEDS ORDERED: PROPOFOL IV EMULSION 10 MG/ML 20 ML VIAL IV ONE (12:07)
[2025-09-04] MEDS ORDERED: DEXAMETHASONE SOD INJ 4 MG/ML VIAL ONE (12:07)
[2025-09-04] MEDS ORDERED: LIDOCAINE 2% 2 ML VIAL/AMP(20MG/ML) INFIL ONE (12:07)
[2025-09-04] MEDS ORDERED: ONDANSETRON INJ 2 MG/ML 2 ML VIAL ONE ×2 (12:07→18:32)
[2025-09-04] MEDS ORDERED: ROCURONIUM BROMIDE 10 MG/ML 5 ML VIAL IV ONE ×2 (12:48→14:26)
[2025-09-04] MEDS ORDERED: PROMETHAZINE HCL 6.25 MG in SODIUM CHLORIDE 0.9% 50 ML IV PRN (12:58)
[2025-09-04] MEDS ORDERED: ATROPINE SULFATE 0.1 MG/ML 10ML SYR IV PRN (12:58)
[2025-09-04] MEDS ORDERED: HYDROmorphone INJ 2 MG/ML SYR/VIAL IV PRN (12:58)
[2025-09-04] MEDS ORDERED: ceFAZolin 330 MG/ML 1 GM VIAL ONE ×2 (14:24→19:49)
[2025-09-04] MEDS ORDERED: SUGAMMADEX SODIUM 200 MG/2 ML VIAL IV ONE (18:32)
[2025-09-04] MEDS: VANCOMYCIN HCL 1000MG/20ML VIAL ONE (20:06)
--- NOTE | 2025-09-04 20:28 | Post Operative Brief Note ---
Immediate Post Op Note Date of Surgery September 04, 2025 Pre & Post Diagnosis Operation Date: 09/04/25 11:20 Pre-Op Diagnosis: Right Ankle Fracture Post-Op Diagnosis: Right Ankle Fracture I identified the patient and participated in the time-out.: Yes Procedure Operation Date: 09/04/25 11:20 Actual Procedures p Right Ankle Open Reduction Internal Fixation Right Distal Tibia Plafond, Open Reduction Internal Fixation Right Distal Fibula, Reconstruction Anterior Inferior Tibiofibular Ligament, Physician Directed Fluoroscopy Greater Than One Hour Application Right Below Knee Splint(Right) - Nestor Mandujano DO Surgeon Nestor Mandujano DO Hydrometer Calibrator Hair Goodman PA-C Estimated Blood Loss 50 Findings See Below Significant comminution of the posterior tibial plafond and with multiple separate fracture fragments including 1 that involve the posterior aspect of the posterior tibial tendon groove. Additionally, there were multiple intra- articular loose fragments of cartilage with small amount of subchondral bone at needed to be removed. Significantly comminuted fibula unable to be lag. Small rim of bone attached to the anterior inferior tibiofibular ligament that had avulsed from the anterolateral distal tibia. Drains Payne Catheter (16 fr payne inserted by Audrey Alcocer without complication - draing clear yellow urine)
[2025-09-04] MEDS: MEPERIDINE HCL 25 MG/ML CARP/VIAL ONE (20:46)
[2025-09-04] MEDS: MEPERIDINE HCL 25 MG/ML CARP/VIAL IV STA (21:13)
--- NOTE | 2025-09-04 21:13 | Anesthesiology Progress Note ---
Date of Service September 04, 2025 Anesthesia Post Procedure Vital Signs Vital Signs: Temp Pulse Pulse Resp BP Pulse Ox O2 Del Method 09/04/25 21:00 36.4 C L 77 20 137/89 100 Room Air 09/04/25 20:55 82 18 150/85 H 100 Room Air 09/04/25 20:45 80 22 156/72 H 100 Room Air 09/04/25 20:35 81 16 145/81 H 100 Room Air 09/04/25 20:25 81 18 152/88 H 99 Room Air 09/04/25 20:16 36 C L 82 18 142/115 H 98 Room Air 09/04/25 10:18 36.8 C 70 18 155/87 H 99 Room Air Pain Intensity Right Thigh: Pain Intensity: 7 Transfer of Care Handoff Completed per policy Notes Mental Status: alert / awake / arousable and participated in evaluation Patient Amnestic to Procedure: Yes Nausea / Vomiting: adequately controlled Pain: adequately controlled Airway Patency, RR, SpO2: stable & adequate BP & HR: stable & adequate Hydration State: stable & adequate Anesthetic Complications: no major complications apparent and Pt Satisfied with anesthetic care
--- NOTE | 2025-09-04 21:25 | Operative Report ---
Post Operative Report Pre & Post Diagnosis Operation Date: 09/04/25 11:20 Pre-Op Diagnosis: 1. Right tibial plafond fracture 2. Right fibula fracture 3. Disruption right syndesmosis Post-Op Diagnosis: Same I identified the patient and participated in the time-out.: Yes Procedure Operation Date: 09/04/25 11:20 Actual Procedures p Right Ankle Open Reduction Internal Fixation Right Distal Tibia Plafond, Open Reduction Internal Fixation Right Distal Fibula, Reconstruction Anterior Inferior Tibiofibular Ligament, Physician Directed Fluoroscopy Greater Than One Hour Application Right Below Knee Splint(Right) - Nestor Mandujano DO 1. Open reduction internal fixation right distal tibial plafond 2. Open reduction internal fixation right fibula 3. Reconstruction right anterior inferior tibiofibular ligament 4. Physician directed fluoroscopy greater than 1 hour 5. Application right below-knee splint Due to the complex nature of the procedure, the entire surgery was performed with the operational assistance of Hair Goodman PA-C. The orthodontist assistant, under direct supervision, was involved in the performance of all aspects of the surgical procedure including hemostasis, tissue retraction, instrument management, patient positioning and wound closure. Surgeon Nestor Mandujano DO Intelligence Support Officer Hair Goodman PA-C Estimated Blood Loss 50 Findings See Below Significant comminution of the posterior tibial plafond and with multiple separate fracture fragments including one that involved the posteromedial aspect of the posterior tibial tendon groove. Additionally, there were multiple intra- articular loose fragments of cartilage with less than 1mm of subchondral bone attached that were unable to be fixated and instead needed to be removed. Significantly comminuted fibula unable to be lagged with screws, so instead was bridges. Small rim of bone attached to the anterior inferior tibiofibular ligament that had avulsed from the anterolateral distal tibia unable to be fixated with hardware, so instead suture and an anchor were used to reconstruct the AITFL. Specimens none Complications none immediately apparentd Disposition Disposition: Recovery Room Maryann Quiroga is a 65-year-old female who originally fell on 08/27/2025 and sustained a right ankle fracture. She was seen in the emergency department and reduced by the on-call orthopedist (Dr. Beard). She had a CT scan reviewed and she was sent to [facility] in follow-up for definitive management. She denies significant past medical history with the exception of prediabetes. She denies any additional areas of pain besides her right ankle. Her x-rays and CT scan demonstrate a complex ankle fracture with a comminuted posterior malleolus with intra- articular bone fragments as well as a comminuted Cummings C fibula fracture and an anterior Chaput fragment off the distal tibia. I had a long discussion with the patient regarding the nature of this injury. We discussed in great detail the pathoanatomy, pathophysiology, treatment options. Given the significant instability of her ankle, my recommendation is for open reduction internal fixation of the posterior malleolus, fibula, syndesmosis, and Chaput fragment. I discussed with her the alternative surgical management which would be for nonoperative care. I believe nonoperative management carries with it a very high risk of posttraumatic osteoarthrosis as well as nonunion and malunion leading to an unstable ankle in the future. We discussed the risks of surgery which include but are not limited to loss of life/limb, DVT/PE, incomplete relief of pain, need for additional surgery, iatrogenic injury to bone/nerve/tendon/vessel, nonunion, malunion, hardware complication, hardware failure, hardware irritation, wound healing complications, infection. Given the fact that the patient will have multiple incisions about her ankle for fixation, the patient's risk of wound healing complications is higher in the general public as well. After thorough discussion the risk, benefits and alternatives to surgical management, the patient was interested in pursuing operative care. At the time of her original evaluation, the patient's skin demonstrated positive wrinkle sign and on evaluation today, her soft tissue swelling is amenable for definitive fixation. We will plan for a posterior medial approach to the posterior malleolus in order to reduce the incarcerated fragments within the posterior malleolus, a direct lateral approach to the distal fibula for fixation of the distal fibula, syndesmosis and the Nirav fragment. Surgical plan: Open reduction internal fixation right distal fibula, posterior malleolus, Chaput fragment, syndesmosis. Description of Procedure After informed consent was obtained, the patient was correctly identified in the preoperative holding suite, the operative site was marked with the surgeon's initials, the date of surgery, and the word yes. The patient was then taken to the operative suite. The department of anesthesia administered general anesthesia with a popliteal and saphenous nerve block. The patient was transferred from the [facility] to the operative table. All bony prominences were well-padded. Briefing and timeout was performed. All implants were available and sterile at the time. BRIEFING AND DEBRIEFING: Pre and post operative briefing and debriefing was performed. Introductions were made, goals of the procedure were discussed, questions and concerns were addressed. The operative site markings were identified and appropriate. A time [id number] was performed, the patient's correct identity was confirmed and the correct operative sites were identified. The patients pre-operative antibiotic dosing and administration was confirmed along with other SCIP measures. The team was polled at the completion of the surgery and all team members were in agreement that the procedure was without complication, the counts are correct, the wound class was identified and suggestions for improvement were shared. General anesthesia was induced. A well-padded tourniquet was placed high on the right thigh. We then transferred the patient from the [facility] to the operative table rolling from supine to prone. Patient was placed on gel rolls and bilateral upper extremities were placed in the superman position and were well-padded on arm boards. Contralateral lower extremity had an SCD placed on it and was turned on. Contralateral lower extremity was secured to the table. The operative right lower extremity was placed on the bone foam wedge such that radiographs could be easily obtained. We then marked out the anatomy of the ankle including the medial malleolus, lateral malleolus, line of the ankle joint. We would plan for a posterior medial incision and a direct lateral incision. We plan for a posterior medial approach about 1 cm posterior to the posterior border of the medial distal tibia extending along the course of the posterior tibial tendon. We would exsanguinate the limb, raise the tourniquet to 250 mmHg. It remained elevated for 120 minutes and was not reinflated. We incised sharply through skin dissecting bluntly through subcutaneous tissue until we encountered the fascia overlying the posterior tibial tendon. Posterior tibial tendon sheath was then opened in line with the tendon and distally we extended our distal incision into the tarsal tunnel such that the posterior tibial tendon could be subluxed. This was needed due to the far medial fracture piece. We then developed the interval between the posterior tibial tendon and the FDL protecting the neurovascular bundle while retracting it laterally behind the FDL. We would approach the posterior distal tibia and raise a periosteal flap across the entirety of the distal tibia such that we could see the entire posterior side of the distal tibia. Immediately evident where the 2 fracture pieces of the the posterior malleolus fracture, we used a freer elevator to elevate the lateral piece first and in this fracture site, significant comminution was easily identified. We would thoroughly irrigate the fracture site using sterile saline and small pieces of delaminated cartilage were removed from the ankle joint with this irrigation. Next, we evaluated the intra-articular loose bodies. There were 2 on the lateral side. The largest 1 measured 4 mm in length, 1 mm in width, and had 1 mm subchondral bone attached to it. Neither of the comminuted pieces were large enough to hold any stabilization, so these were discarded. We then turned our attention towards the medial fracture piece. This was gapped open and significant comminution was also seen here. This medial fracture extended into the posterior aspect of the posterior tibial tendon groove which is what necessitated us entering this space. The fracture piece was quite medial, and given its location, would not easily be secured with our direct posterior antiglide plate. We made the decision instead to fix this with a single 1.9 x 30 mm compression FT snap off pin from the Arthrex set. We would stabilize this piece with a wire prior to placing the snap off pin. Excellent compression of the piece was noted and the snap off pin was snapped below the fibrocartilage such that the posterior tibial tendon would not rub on it. We then turned our attention towards the lateral fragment. This was reduced into place using dental picks. Once we were satisfied with the reduction, we would place 2 K wires percutaneously just lateral to the Achilles tendon in a posterior to anterior and retrograde fashion such that these secured to the posterior plafond appropriately. Our reduction was then checked both visually and fluoroscopically and once we are satisfied, we would select an appropriately sized posterior tibial plate. We chose the 3 hole posterior tibial plate from the Arthrex set. We secured this in place using K wires and checked its position fluoroscopically. Once we are satisfied, we would drill, measure, and place appropriately sized screws proximally. As we wanted this to act in an antiglide fashion, we placed the axillary screw in the plate first. This was a 3.5 mm cortical screw. This achieved excellent compression of the plate down to bone and compression of the fracture. We then placed the proximal screw also using a 3.5 mm cortical screw and distally, we placed 2 x 2.7 mm locking screws. We then checked the reduction fluoroscopically and were satisfied with our work on the posterior malleolus. We then thoroughly irrigate this wound using copious amounts of sterile saline. At this point the tourniquet was deflated and hemostasis was achieved. We would place 1/2 g of vancomycin powder deep in the wound. We then began our layered closure. We would close the posterior tibial tendon sheath just posterior to the medial malleolus using interrupted 0 Vicryl sutures in a [id number] fashion. For the remainder of the posterior tibial tendon sheath, we would run a 3-0 Monocryl which did reapproximate the deep fascia well. Then, in the subcutaneous fat we would place interrupted 3-0 Monocryl sutures to reapproxi mate subcutaneous tissue and then in the skin, we would place 4-0 nylon's in a vertical mattress fashion. We then turned our attention towards the lateral side. We would cover the limb in an impervious stockinette and flip the patient from prone to supine back onto the [facility] and then transfer her in supine fashion from the [facility] to the operative table. All bony promises were once again padded. The patient's SCD was turned on again and her bilateral upper extremities were placed on well-padded arm boards and secured. The contralateral lower extremity was secured to the table and the leg was placed on a bone foam ramp. We then removed our impervious stockinette and reprepped the entire right lower extremity using ChloraPrep. We would redrape the lower extremity in standard sterile fashion. We then would plan for our direct lateral approach to the fibula. The patient had sustained a comminuted Cummings C type distal fibula fracture as well as an anterior Chaput fragment that both would require stabilization. We incised sharply through skin dissected bluntly and subcutaneous tissue. Distally, we would incise through the periosteum and raised periosteal flaps off the distal fibula both anteriorly and posteriorly. We carried this periosteal dissection proximally until we encountered the fracture. The fracture was significantly comminuted and at this point, we confirmed our plans for a bridge plating construct. Next, in order to preserve the blood supply to the fracture, extra periosteally, we would dissect out the fibula proximal to the fracture taking care to identify and protect superficial peroneal nerve in the anterior flap. We did have 1 cortical read laterally at the distal aspect of the fracture in order to help us establish our fibular length, so we would use that read to obtain a provisional reduction which was gained with the use of a lobster claw reduction clamp. We then check the reduction fluoroscopically and check our fibular length by confirming the distal fibular dime sign. Once we were satisfied with our reduction, we would select an appropriately sized one third tubular plate from the Arthrex set. This was the 10 hole one third tubular plate. We contoured this to match patient's anatomy such that we would have adequate fixation both proximally and distally. We templated the plate down to bone and would place a series of locking screws both proximally and distally to make our bridging construct. We would place 3 locking screws distally and 3 locking screws proximally. This achieved excellent stabilization of our fracture and a bridging construct and maintained our fibular length. Next, we turned our attention towards the anterior chaput fragment. This fragment had approximately 3 mm of subchondral bone on it, and given the patient's severe osteopenia, we did not believe this would adequately hold hardware stabilization. At this point we made the decision to instead reconstruct the anterior inferior tibiofibular ligament using a biocomposite suture anchor. We would select the 4.5 corkscrew FT suture anchor out of the Arthrex set, drill, tap, and placed the suture anchor in the anterolateral distal tibia just proximal to the fracture site this had 2 separate #2 FiberWire sutures loaded into the anchor, so we would pass these in a horizontal mattress fashion through the anterior inferior talofibular ligament and tied them over the top of the fracture. This achieved excellent compression of the small rim of bone back to its donor site on the anterolateral distal tibia. At this point, in order to reinforce our fixation and provide more stability, we opted to place a syndesmotic screw. Given the fact that we had fixated both the posterior rim as well as the AITFL, a stress test would not have been positive, but in order to provide additional stabilization and back up our AITFL reconstruction, considering no hardware was used for this, we opted to place syndesmotic fixation. We had already dissected anteriorly and could visualize the fibula within the incisura. The ankle was then dorsiflexed and the syndesmosis was reduced and compressed into place using a large periarti cular clamp. We checked the position both visually and fluoroscopically and were satisfied. We would then drill across the syndesmosis, measure, and placed an appropriately sized 3.5 mm cortical screw to stabilize her syndesmosis. We would then remove all provisional stabilization and we would check final fluoroscopic images. These final fluoroscopic images included a external rotation stress examination which did not demonstrate any medial clear space widening. We then thoroughly irrigate this lateral wound with copious amounts of sterile saline and we would place an additional half gram of vancomycin powder within this wound. We then closed the deep periosteum over the distal aspect of the plate using a running 3-0 Monocryl. The lateral fascia was also closed with a running 3-0 Monocryl. The skin was then closed with 4 oh nylons in a vertical mattress fashion and quarter inch brown Steri-Strips were placed between all sutures on both sides, the tails were all pulled through on both sides. Over both incisions we would place Betadine soaked Adaptic, 4 x 4's fluff, sterile Webril. We then apply a well-padded trilaminar AO trauma below- knee splint with the ankle held in neutral dorsiflexion with the splint cured. The patient tolerated this procedure well and was transferred to the PACU in stable condition. Prior to transportation to PACU, all counts were correct and a briefing was performed at the end of the case. Physician-directed fluoroscopy for greater than one hour was performed by myself to verify fracture alignment and the safe placement of all internal fixation. The final images saved to PACs showed views demonstrating satisfactory alignment of the fracture and stable internal fixation. Implant verification was performed by myself by reading and confirming the implant information on the packaging with the team before the sterile implants were opened. I was present for the entire procedure. Plan: Weight bearing status: Nonweightbearing right lower EXTR Wound care: Keep dressings clean and dry Range of motion: As tolerated of hip and knee VTE Prophylaxis: 81 mg aspirin p.o. twice daily Antibiotics: Perioperative Ancef Pain Control: Multimodal avoiding NSAIDs Vitamin D Replacement: Labs ordered Discharge Plan: We had plan to discharge the patient home from PACU, however she began experiencing tourniquet thigh pain and given the late time of the conclusion of the procedure wished to stay overnight. We admitted her overnight for observation with plans to discharge home tomorrow Follow Up: With myself in 2 weeks I attest to the content of the Intraoperative Record and any orders documented therein. Any exceptions are noted below.
[2025-09-04] MEDS: HYDROmorphone INJ 0.5 MG/0.5 ML SYR ONE (22:02)
[2025-09-04] MEDS: HYDROmorphone INJ 0.5 MG/0.5 ML SYR IV STA (23:02)
[2025-09-04] MEDS ORDERED: METOCLOPRAMIDE HCL INJ 5 MG/ML 2 ML VIAL IV PRN (23:08)
[2025-09-04] MEDS ORDERED: ONDANSETRON INJ 2 MG/ML 2 ML VIAL IV PRN (23:08)
[2025-09-04] MEDS ORDERED: NALOXONE HCL 0.4 MG/1 ML VIAL/CARP IV PRN (23:08)
[2025-09-04] MEDS ORDERED: MAGNESIUM HYDROXIDE SUSP 30 ML UDC PO PRN (23:08)
--- NOTE | 2025-09-04 23:12 | Orthopedic Progress Note ---
Date of Service September 04, 2025 Orthopedic Progress Note Patient with tourniquet thigh pain in PACU, nervous to go home. Requested admission for overnight observation. Given the late time of the completion of her procedure, do believe that this is reasonable. Placed observation orders. Patient will be transferred to the floor. She will do PT and OT tomorrow. She will begin aspirin 81 mg p.o. twice daily tomorrow for DVT prophylaxis.
[2025-09-04] MEDS ORDERED: NO NSAIDS SCH (23:15)
[2025-09-05] MEDS: SODIUM CHLORIDE 0.9% 1,000 ML IV SCH (00:32)
[2025-09-05] MEDS: HYDROmorphone INJ 0.5 MG/0.5 ML SYR IV STA (00:49)
[2025-09-05] MEDS: ONDANSETRON HOME PACK 4MG OD TAB PO ONE (00:51)
[2025-09-05] MEDS: HYDROmorphone INJ 0.5 MG/0.5 ML SYR IV PRN (04:16)
[2025-09-05] MEDS: ACETAMINOPHEN 500 MG TAB PO SCH (05:40)
--- NOTE | 2025-09-05 07:32 | Fluoroscopy Report ---
INTRAOPERATIVE RADIOGRAPHS CLINICAL HISTORY: Open reduction and internal fixation of right ankle fractures. Fluoro time: 4 minutes 11 seconds Ka,r: 5.32 mGy FINDINGS: 10 spot fluoroscopic views of the right ankle are correlated with radiographs and CT of the ankle dated 08/27/2023. Again seen are comminuted fractures of the distal tibia and fibula. There is been buttress plate fixation along the dorsal cortex of the distal tibia. There has also been buttre ss plate fixation along the lateral cortex the distal fibula. Both plates are transfixed by several s crews, and one of the screws transfixes both the distal fibula and tibia. A single screw transfixes t he posterior malleolus, and this screw may extend into the posterior joint space. The orthopedic hard ortiz appears intact. Near-anatomic alignment is restored at the ankle joint. Overlying soft tissue ed meghan is observed. IMPRESSION: 1. Intraoperative images from open reduction and internal fixation of distal tibial and fibular fract ures. 2. A screw transfixing the posterior malleolar fracture may extend into the posterior joint space. Electronically signed by: Kevin Dumont M.D. 09/05/2025 7:30 AM
[2025-09-05] MEDS: ASPIRIN 81 MG ECTAB PO SCH (08:16)
[2025-09-05] MEDS: DOCUSATE SODIUM 100 MG CAP PO SCH (08:16)
[2025-09-05] MEDS: MULTIVITAMIN TAB PO SCH (08:16)
--- NOTE | 2025-09-05 11:24 | Orthopedic Progress Note ---
Date of Service September 05, 2025 Assessment & Plan (1) Status post ORIF of fracture of ankle: (2) Vitamin D insufficiency: Plan 65-year-old female postoperative day #1 status post open reduction internal fixation of right ankle. Patient doing well this morning. Her tourniquet thigh pain has improved. We reviewed her operative images today and the patient is excited to work with PT and OT. She will work with PT and OT and if deemed appropriate, will be discharged back home today. Should they have the any issues, we can convert her to an inpatient stay. Her vitamin D returned a value of 22.7 which is low. We will begin repletion. She is nonweightbearing on the right lower extremity. She will take aspirin 81 mg p.o. twice daily for DVT prophylaxis. She should continue to elevate her limb with her heel floated. I will plan to see her in the office in about 2 weeks for wound check. Admission and Anticipated Discharge Date Admission Date: September 04, 2025 Subjective Postoperative day 1 status post open reduction internal fixation right ankle. Patient doing well this morning. She was admitted for observation due to tourniquet thigh pain. This has improved since last evening. Review of Systems Review of Systems: All systems reviewed & are unremarkable except as noted in HPI & below Physical Exam Physical Exam: Patient's splint is clean dry and intact. She demonstrates diminished sensation in her foot secondary to the block. She continues to lack EHL and FHL function secondary to the block. Her toes are warm and well-perfused with brisk capillary refill. Results & Data Vital Signs (Past 12 Hours) Vital Signs Temp Pulse Pulse Resp BP Pulse Ox O2 Del Method 09/05/25 07:38 36.5 C 63 16 118/72 95 Room Air 09/05/25 05:38 36.6 C 67 16 125/72 98 Room Air 09/05/25 01:38 36.7 C 81 16 136/74 98 Nasal Cannula 09/05/25 00:40 Nasal Cannula 09/05/25 00:38 36.8 C 76 16 123/71 96 Nasal Cannula 09/05/25 00:14 36.6 C 78 16 115/69 95 Nasal Cannula O2 Flow Rate 09/05/25 07:38 09/05/25 05:38 09/05/25 01:38 1 09/05/25 00:40 2 09/05/25 00:38 2 09/05/25 00:14 2
--- NOTE | 2025-09-05 11:29 | Hospitalist Consultation ---
Date of Consultation September 05, 2025 Assessment & Plan (1) Status post ORIF of fracture of ankle: (2) Prediabetes: (3) Osteoarthritis of right knee: (4) Hyperlipidemia: (5) Hypertension: (6) Vitamin D insufficiency: Plan 65 yo F placed in observation following ORIF of R ankle d/t tib/fib fracture that resulted from mechnical GLF #R Tib/Fib Fx s/p ORIF, POD#1 - Placed in obs overnight - Recommend IS to prevent atelectasis/PNA - OOB w/ assist, NWB to RLE unless otherwise instructed by ortho - Pain control as written by primary service - Recommend continued stool softener, increase fiber intake and ensure adequate water intake to prevent constipation - Per ortho --> ASA 81mg BID for DVT ppx - PT/OT eval #Pre-DM - On Metformin 500mg once daily with dinner-on hold from home - Occasionally checks fasting BSG in the AM, always in the 90s or lower #HTN - BP well controlled, restart home triamterene/HCTZ #HLD - Does not appear to be on any medications for this - defer to PCP #Vitamin D insufficiency - Start Vitamin D 2000 IU daily (can obtain OTC) Thank you for allowing us to participate in the care of your patient. No further recommendations at this time. Patient is medically stable for discharge when cleared from orthopedic standpoint following PT/OT eval. Above plan of care has been discussed with Dr. Jacinto who will also see and evaluate. Supervising Physician Co-Signing Physician Notes PA Supervision Note: I personally saw and examined the patient. I verified all vickers points and agree with SUNNI Hutton with the following exceptions and/or additions: S-patient still having a lot of pain in her right foot and some tingling in the toes. Denies chest pains or shortness of breath, no nausea. She felt lightheaded with standing with physical therapy today where blood pressures are elevated. History and ROS otherwise reviewed as above O- Vitals reviewed Gen: AAOx3, NAD, obese HEENT: Anicteric sclerae, EOMI CV: RRR no mgr nl S1S2 Pulm: CTAB no wcr Abd: +BS soft NT ND no masses or hernias Ext: Right toes exposed from cast with good cap refill, sensation intact, warm to the touch, and she can move them Skin: No rashes, warm/dry A/C-42-zobc-old female with history of HTN, HLD, vitamin D deficiency, prediabetes, here with right trimalleolar fracture repair. Hospitalist service consulted for medical management - Restart home triamterene/HCTZ - Check BMP and CBC in the morning - Continue pain control - Order incentive spirometer for low-grade temperatures and encourage patient to take deep breaths History of Present Illness Reason for Consultation: Medical management Requesting Physician: Dr. Mandujano Attending Physician: Nestor Mandujano, DO History of Present Illness Kimber is a pleasant 65 yo F with a pmhx of pre-diabetes, HTN, HLD and OA who presents for ORIF R ankle following a tib/fib fracture that resulted from a GLF on 08/27. She was seen in the ER on 08/27, fracture was reduced by orthopedics and she was scheduled with Dr. Mandujano as outpatient for definitive treatment. She was brought in for ORIF on 09/04, taken to the OR, received general anesthesia. She tolerated the surgical intervention well and was transitioned to recovery. She received RLE nerve block for additional pain management. She endorsed tourniquet thigh pain in PACU and expressed concern with discharge to home and was subsequently placed in an observation bed. She was started on ASA 81mg BID for DVT ppx. Plans for therapy evaluation today. She lives at home with her and plans to return home with his assistance. She denies cp or dyspnea. Her pain is controlled at present and seems to come in waves of sharp pain that eventually dissipates. Her RLE numb and unable to feel/wiggle her toes. She denies n/v. Did have trouble sleeping last night. Hasn't been out of bed yet. Is passing flatus. Allergies Allergy/AdvReac Type Severity Reaction Status Date / Time No Known Allergies Allergy Verified 09/04/25 09:43 Home Medications Medication Instructions Recorded Confirmed Type aspirin 81 mg tablet,delayed 81 mg PO QAM 12/12/22 09/04/25 History release (Adult Aspirin Regimen) docusate sodium 100 mg capsule 100 mg PO BID 14 days #28 caps 08/28/25 09/04/25 Rx acetaminophen 500 mg tablet 1,000 mg PO Q8H PRN Pain 09/03/25 09/04/25 History (Tylenol Extra Strength) celecoxib 100 mg capsule (Celebrex) 100 - 200 mg PO UD PRN Pain 09/03/25 09/04/25 History metformin 500 mg tablet,extended 500 mg PO QPM 09/03/25 09/04/25 History release 24 hr triamterene 37.5 1 tab PO QAM 09/03/25 09/04/25 History mg-hydrochlorothiazide 25 mg tablet acetaminophen 325 mg tablet 650 mg (2 x 325 mg) PO Q8H PRN 09/04/25 Rx (Tylenol) pain #60 tabs ondansetron 4 mg disintegrating 4 mg PO BID PRN nausea and 09/04/25 Rx tablet vomiting 3 days #14 tabs oxycodone 5 mg tablet 5 mg PO Q6H PRN pain #30 tabs 09/04/25 Rx ergocalciferol (vitamin D2) 1,250 1,250 mcg PO Q7D@0900 60 days #8 09/05/25 Rx mcg (50,000 unit) capsule caps Patient History Medical History Abnormal computed tomography angiography of head CTA [facility] 2021: fusiform dilation of distal cervical segment right ICA and mild luminal irregularities V3 segments of both vertebral arteries [facility] neurosurgery recommends low dose daily aspirin Displaced trimalleolar fracture of right ankle (08/27/25) Comminuted fracture of the distal fibular shaft and posterior malleolar fracture of the tibia from a fall when she twisted her ankle raking leaves. History of basal cell carcinoma x2 (neck, left shoulder) History of melanoma (2022) B[place]low 0.2 mm History of skull fracture (2021) 2/2 to fainting episode/fall due to low blood pressure HTN (hypertension) Hx of hyperlipidemia Obesity Osteoarthritis Prediabetes Surgical History H/O oral surgery many years ago History of arthroscopy right knee Hx of basal cell carcinoma excision neck, shoulder Hx of colonoscopy Hx of melanoma excision Family History Aunt Breast cancer Grandfather (Paternal) Colorectal cancer Grandmother (Paternal) Colorectal cancer Denies family history of Ovarian cancer Prostate cancer Myocardial infarction Social History Smoking Status: Never smoker Second Hand Exposure: Yes (hx as child); Do You Dip or Chew Tobacco: No; Tobacco Cessation Education Requested by Patient: No Hx Alcohol Use: No Hx Substance Use: No Preferred Language: Bermudian Communication Ability: Effective Visual Impairment: No Limitations Hearing Ability: Normal Tester/Lift Trucker Required: No Beliefs That Will Affect Care: None marital status: Current Living Situation: Spouse current occupational status: unemployed Other Information That Helps Us Care for You: No Feels Safe at Home: Yes Safety Concerns: Feels Safe At This Time Childhood Exposure to Second-Hand Smoke: Yes Diet: regular caffeine: Yes Dental Care, Regularly: No Physical Activity Frequency: Does not Exercise Seatbelt Use: always Sunscreen Use: Yes Assistive Devices: None Review of Systems Review of Systems: All systems reviewed and are unremarkable except as noted in HPI and below. Denies fever, chills, fatigue, headache, nasal congestion, sore throat, cough, chest pain, shortness of breath, palpitations, orthopnea, PND, abdominal pain, n/v/d, constipation, dysuria, hematuria, frequency, back pain, easy bruising or bleeding, skin lesions or rashes. Physical Exam Physical Exam: GENERAL: 65 yo obese WF. Pleasant and cooperative, A&O x3. No distress. EYES: EOMI. PERRLA. Anicteric. HENT: Moist mucous membranes. No cervical lymphadenopathy. LUNGS: Clear to auscultation bilaterally. No accessory muscle use. No W/R/R. CARDIOVASCULAR: Regular rate and rhythm. ABDOMEN: Soft, non-tender and non-distended. No palpable masses. Bowel sounds normoactive x 4 quad. EXTREMITIES: RLE with splint in place. Cap refill <2 sec. LLE w/o edema. Non- tender. Peripheral pulses +2/4. NEUROLOGIC: No focal neurological deficits. CN II-XII grossly intact. SKIN: Warm, dry, intact. No rashes or lesions. Results & Data Results & Data Vital Signs (Past 12 Hours) Vital Signs Temp Pulse Pulse Resp BP Pulse Ox O2 Del Method 09/05/25 07:38 36.5 C 63 16 118/72 95 Room Air 09/05/25 05:38 36.6 C 67 16 125/72 98 Room Air 09/05/25 01:38 36.7 C 81 16 136/74 98 Nasal Cannula 09/05/25 00:40 Nasal Cannula 09/05/25 00:38 36.8 C 76 16 123/71 96 Nasal Cannula 09/05/25 00:14 36.6 C 78 16 115/69 95 Nasal Cannula 09/04/25 23:15 80 16 121/66 94 Nasal Cannula O2 Flow Rate 09/05/25 07:38 09/05/25 05:38 09/05/25 01:38 1 09/05/25 00:40 2 09/05/25 00:38 2 09/05/25 00:14 2 09/04/25 23:15 2 Laboratory Results Vit D = 22.7 (insufficient) PG Care Time/CCT Total # of Minutes Spent Total Time Spent with Patient: Total time spent is greater than 50% in coordination of care (as documented) at patient's floor/unit and/or counseling patient: 62 minutes Coding Level of Care Code 79202 IN/OBS CONSULT LVL 4,60M Diagnoses Status post ORIF of fracture of ankle Z98.890; Z87.81 Prediabetes R73.03 Osteoarthritis of right knee M17.11 Hyperlipidemia E78.5 Hypertension I10 Vitamin D insufficiency E55.9
[2025-09-05] MEDS: ERGOCALCIFEROL 1250 MCG (50,000 UNITS) CAP PO SCH (11:59)
--- NOTE | 2025-09-05 16:21 | Orthopedic Progress Note ---
Date of Service September 05, 2025 Assessment & Plan Admission and Anticipated Discharge Date Admission Date: September 04, 2025 Orthopedic Progress Note Patient experienced lightheadedness following physical therapy and requested to stay in the hospital 1 more evening. We have converted her observation admission to an inpatient admission. She will be seen tomorrow and if doing well, discharged home
[2025-09-05] MEDS: SENNA 8.6 MG TAB PO SCH (21:11)
[2025-09-05 23:36] VITALS: RESP 16
[2025-09-06 07:20] LABS: Hematocrit (blood only) 32.8 % (37.0-47.0); Hemoglobin 10.2 g/dL (12.0-16.0); Immature Granulocytes # (auto) 0.03 K/uL (0.01-0.20); Immature Granulocytes % (auto) 0.3 %; Mean Corpuscular Hemoglobin 29.0 pg (25.0-34.0); Mean Corpuscular Volume 93.2 fL (80.0-100.0); Platelet Count 296 K/uL (130-400); RDW Standard Deviation 44.9 fL (36.4-46.3); Red Blood Count 3.52 M/uL (4.20-5.40); White Blood Count 9.28 K/ul (4.8-10.8)
[2025-09-06 07:34] LABS: Anion Gap 7.0 (3-11); Blood Urea Nitrogen 21.0 mg/dl (6-23); Calcium 7.9 mg/dl (8.6-10.3); Carbon Dioxide 28.0 mmol/L (21-32); Chloride 104.0 mmol/L (98-107); Creatinine Clr Calc Pharmacy 67.5 ml/min; Glucose 102.0 mg/dl (70-99(Fasting)); Potassium 3.7 mmol/L (3.5-5.1); Sodium 139.0 mmol/L (136-145)
[2025-09-06 08:28] VITALS: BP 151/79; PULSE 70; TEMP 98.2; O2SAT 95
[2025-09-06] MEDS: TRIAMTERENE/HCTZ 37.5/25MG TAB PO SCH (08:57)
--- NOTE | 2025-09-06 09:20 | Orthopedic Progress Note ---
Date of Service September 06, 2025 Assessment & Plan (1) Status post ORIF of fracture of ankle: (2) Vitamin D insufficiency: Plan 65-year-old female postoperative day #2 status post open reduction internal fixation of right ankle. Patient doing well this morning. Her tourniquet thigh pain has improved. Her block has worn off and she had increased ankle pain last evening, but this has been controlled with medications. Patient worked with PT and OT yesterday and had some lightheadedness following her physical therapy session as such she requested to stay an additional evening. Patient has another session scheduled with physical therapy today. Will plan for discharge home following therapy. She is nonweightbearing on the right lower extremity. She will take aspirin 81 mg p.o. twice daily for DVT prophylaxis. She should continue to elevate her limb with her heel floated. I will plan to see her in the office in about 2 weeks for wound check. Admission and Anticipated Discharge Date Admission Date: September 05, 2025 Subjective Postoperative day 2 status post open reduction internal fixation right ankle. Patient doing well this morning. The patient's block is finally worn off and she had increased pain yesterday. She had some lightheadedness following her physical therapy session and requested to stay an additional evening due to this. Review of Systems Review of Systems: All systems reviewed & are unremarkable except as noted in HPI & below Physical Exam Physical Exam: Patient's splint is clean dry and intact. She demonstrates diminished sensation in her foot secondary to the block. She continues to lack EHL and FHL function secondary to the block. Her toes are warm and well-perfused with brisk capillary refill. Results & Data Vital Signs (Past 12 Hours) Vital Signs Temp Pulse Resp BP Pulse Ox O2 Del Method 09/06/25 07:55 36.8 C 70 16 151/79 H 95 Room Air 09/05/25 23:35 37 C 78 16 134/69 96 Room Air
--- NOTE | 2025-09-06 09:24 | Discharge Summary ---
Date of Service September 06, 2025 Admission HPI Per Admitting Provider Kimber is a 65-year-old female who originally fell on 08/27/2025 and sustained a right ankle fracture. She was seen in the emergency department and reduced by the on-call orthopedist (Dr. Beard). She had a CT scan reviewed and she was sent to me in follow-up for definitive management. She denies significant past medical history with the exception of prediabetes. She denies any additional areas of pain besides her right ankle. Her x-rays and CT scan demonstrate a complex ankle fracture with a comminuted posterior malleolus with intra- articular bone fragments as well as a comminuted Cummings C fibula fracture and an anterior Chaput fragment off the distal tibia. I had a long discussion with the patient regarding the nature of this injury. We discussed in great detail the pathoanatomy, pathophysiology, treatment options. Given the significant instability of her ankle, my recommendation is for open reduction internal fixation of the posterior malleolus, fibula, syndesmosis, and Chaput fragment. I discussed with her the alternative surgical management which would be for nonoperative care. I believe nonoperative management carries with it a very high risk of posttraumatic osteoarthrosis as well as nonunion and malunion leading to an unstable ankle in the future. We discussed the risks of surgery which include but are not limited to loss of life/limb, DVT/PE, incomplete relief of pain, need for additional surgery, iatrogenic injury to bone/nerve/tendon/vessel, nonunion, malunion, hardware complication, hardware failure, hardware irritation, wound healing complications, infection. Given the fact that the patient will have multiple incisions about her ankle for fixation, the patient's risk of wound healing complications is higher in the general public as well. After thorough discussion the risk, benefits and alternatives to surgical management, the patient was interested in pursuing operative care. At the time of her original evaluation, the patient's skin demonstrated positive wrinkle sign and on evaluation today, her soft tissue swelling is amenable for definitive fixation. We will plan for a posterior medial approach to the posterior malleolus in order to reduce the incarcerated fragments within the posterior malleolus, a direct lateral approach to the distal fibula for fixation of the distal fibula, syndesmosis and the Chaput fragment. Surgical plan: Open reduction internal fixation right distal fibula, posterior malleolus, Chaput fragment, syndesmosis. Principal Diagnosis Trimalleolar right ankle fracture Discharge Exam Splint clean dry and intact. Demonstrates intact EHL and FHL function. Sensation intact in the foot DPN SPN nerve distribution. Discharge Data Allergies Allergy/AdvReac Type Severity Reaction Status Date / Time No Known Allergies Allergy Verified 09/04/25 09:43 Consultations 09/04/25 23:08 Consult Hospitalist Routine Procedures Performed Operation Date: 09/04/25 11:20 Actual Procedures p Right Ankle Open Reduction Internal Fixation Right Distal Tibia Plafond, Open Reduction Internal Fixation Right Distal Fibula, Reconstruction Anterior Inferior Tibiofibular Ligament, Physician Directed Fluoroscopy Greater Than One Hour Application Right Below Knee Splint(Right) - Nestor Mandujano DO Ordered Studies 09/04/25 05:00 US - OR guided needle placemen Routine 09/04/25 11:20 FL ankle RT min 3V RTN Routine Hospital Course (1) Status post ORIF of fracture of ankle: (2) Vitamin D insufficiency: Plan Patient was admitted status post open reduction internal fixation right trimalleolar ankle fracture Due to tourniquet thigh pain following surgery. The patient worked with PT and OT recommended 1 additional night stay due to lightheadedness following physical therapy session. Patient did well with PT and OT and was able to maintain nonweightbearing. She was discharged home in stable condition on postoperative day #2. During her admission she was found to be vitamin D deficient so repletion was started with ergocalciferol 50,000 units weekly Total Time Total Time Spent Total Time Spent (In Minutes): 20 Discharge Plan Discharge Items Patient Disposition: Home - Self-Care Reason For Visit: Right Ankle Fracture Discharge Diagnosis: Right ankle fracture Activity: Per Instructions section Bathing: Keep incision dry Weightbearing: Right non-weightbearing Non-emergency contact: Surgeon Call non-emergency contact if: you have any medication questions, your pain is worsening and your temperature is above 101 Follow-up/Referrals: Jesica Moran MD [Primary Care Provider] - Diet: Regular Addtl Attending Provider Instructions: Nonweightbearing right lower extremity Keep splint clean and dry Keep limb elevated to decrease swelling Take aspirin 81 mg p.o. twice daily to decrease risk of blood clots Take oxycodone and Tylenol as needed for pain control Avoid NSAIDs Follow-up in 2 weeks as scheduled Call the office with any questions or concerns [phone] Pending Studies at Discharge: No Stand-Alone Forms: Anesthesia/Sedation, Adult, [facility] Medications and DC Order Prescriptions: New oxycodone 5 mg tablet 5 mg PO Q6H PRN (Reason: pain) Qty: 30 0RF ondansetron 4 mg tablet,disintegrating 4 mg PO BID PRN (Reason: nausea and vomiting) 3 Days Qty: 14 0RF acetaminophen [Tylenol] 325 mg tablet 650 mg PO Q8H PRN (Reason: pain) Qty: 60 0RF ergocalciferol (vitamin D2) 1,250 mcg (50,000 unit) Capsule 1,250 mcg PO Q7D@0900 60 Days Qty: 8 0RF Continued aspirin [Adult Aspirin Regimen] 81 mg tablet,delayed release (DR/EC) 81 mg PO QAM acetaminophen [Tylenol Extra Strength] 500 mg tablet 1,000 mg PO Q8H PRN (Reason: Pain) triamterene-hydrochlorothiazid 37.5-25 mg tablet 1 tab PO QAM metformin 500 mg tablet extended release 24 hr 500 mg PO QPM docusate sodium 100 mg Capsule 100 mg PO BID 14 Days Qty: 28 0RF Rx Instructions: over the counter; while on pain medication Held celecoxib [Celebrex] 100 mg capsule 100 - 200 mg PO UD PRN (Reason: Pain) Hold Instructions: Resume on 09/14/26. Rx Instructions: 1-2 tabs daily as needed for arthritis pain; Discontinued oxycodone 5 mg Tablet 5 - 10 mg PO Q4H PRN (Reason: pain) Qty: 15 0RF Patient Comments: 09/03/25-insurance won't approve until surgeon orders it Rx Instructions: 5mg for pain 1-5 10mg for pain 6-10 Discharge Orders: Discharge Order (Routine); Ordered 09/06/25 Ordered By: Nestor Trivedi/Other Patient Handouts: DVT Post Op Prevention Admission Data Admit Date/Time: 09/05/25 16:20 Attending Provider: Nestor Mandujano Admit Provider: Nestor Mandujano Primary Care Provider: Jesica Moran Other Providers: Tosha Jacinto
--- NOTE | 2025-09-06 11:06 | Hospitalist Progress Note ---
Date of Service September 06, 2025 Assessment & Plan (1) Status post ORIF of fracture of ankle: (2) Prediabetes: (3) Hypertension: (4) Vitamin D insufficiency: Plan 65 yo F with history of HTN, HLD, pre-DM, admitted for pain control following ORIF of R ankle d/t trimalleolar fracture repair that resulted from mechanical GLF. Hospitalist service consulted for medical management #R Tib/Fib Fx s/p ORIF-still dealing with pain control, but improving. - Recommend IS to prevent atelectasis/PNA - OOB w/ assist, NWB to RLE unless otherwise instructed by ortho - Pain control as written by primary service - Recommend continued stool softener, increase fiber intake and ensure adequate water intake to prevent constipation - Per ortho --> ASA 81mg BID for DVT ppx - PT/OT eval-awaiting repeat evaluation today but plan is to go home #Anemia-likely acute blood loss anemia in the setting of recent surgery and fracture. Hgb down to 10 from 13 preoperatively - Follow-up as an outpatient #Pre-DM - On Metformin 500mg once daily with dinner-on hold from home and can be resumed on discharge - Occasionally checks fasting BSG in the AM, always in the 90s or lower #HTN- BP well controlled, renal function electrolytes normal on check - Continue home triamterene/HCTZ #HLD - Does not appear to be on any medications for this - defer to PCP #Vitamin D insufficiency - Orthopedics prescribed vitamin D2 50,000 units once weekly x 8 weeks DVT prophylaxis-SCDs, aspirin 81 mg p.o. twice daily Disposition-plan for patient to go home today. Hospital service will sign off. Admission and Anticipated Discharge Date Admission Date: September 05, 2025 Subjective Patient still having a lot of pain in the right foot and ankle with some tingling. Denies lightheadedness with standing, denies nausea vomiting, is making urine. She is eating. No chest pains or shortness of breath. She is awaiting to work with PT and then likely going home later today. Still required a dose of IV Dilaudid this morning Physical Exam Constitutional: WD/WN, vitals as above Respiratory: normal respiratory effort, lungs clear to auscultation Cardiovascular: RRR, no murmur, no edema Gastrointestinal (Abdomen): normal bowel sounds, soft, nontender, no hepatosplenomegaly Musculoskeletal: Right leg and ankle in splint and Marcial wrap, first 3 toes exposed are neurovascularly intact, able to wiggle toes Psychiatric: A+Ox3, euthymic affect Results & Data Results & Data Vital Signs (Past 12 Hours) Vital Signs Temp Pulse Resp BP Pulse Ox O2 Del Method 09/06/25 07:55 36.8 C 70 16 151/79 H 95 Room Air 09/05/25 23:35 37 C 78 16 134/69 96 Room Air Laboratory Results CBC, BMP reviewed PG Care Time/CCT Total # of Minutes Spent Total Time Spent with Patient: Total time spent is greater than 50% in coordination of care (as documented) at patient's floor/unit and/or counseling patient: Coding Level of Care Code 36193 SUB INP/OBS CARE 11/08MIN Diagnoses Status post ORIF of fracture of ankle Z98.890; Z87.81 Prediabetes R73.03 Hypertension I10 Vitamin D insufficiency E55.9
--- NOTE | 2025-09-07 13:34 | Coding Query ---
PRESENT ON ADMISSION QUERY To promote full compliance with coding requirements relating to pateint care, physician participation is requested in all cases of remote medical coder uncertainty. Please assist us with the question(s) below: Please place an X within the parenthesis (x). The following diagnosis listed in this patient's medical record require physician assistance to determine if they were present on admission (POA) or not, and also for further documentation of the diagnosis in order to capture it for coding purposes. Please advise for each diagnosis whether it was present on admission, not present on admission, or if it was clinically undetermined. 1. ANEMIA - LIKELY ACUTE BLOOD LOSS ANEMIA (documented on the 09/06 Hospitalist Progress Note) ( ) Present On Admission ( x) Not Present On Admission ( ) Clinically Undetermined Thank you Laxmi Osborn *Definition of the present on admission (POA)-Present on admission is defined as present at the time the order for inpatient admission occurs. Conditions that develop during an outpatient encounter prior to a written order for inpatient admission (including emergency department, observation, or outpatient surgery) are considered present on admission. BIANCA
== END 2025-09-06 15:49 | disposition home or self-care (01) ==
LOC: 3W 10:12 → ASU 10:12